=== PATIENT | male | born 1975 | race Caucasian/White ===

== ENCOUNTER 2024-11-25 15:24 | Inpatient (IN) | payer OTHER, SELFPAY ==
[2024-11-25] VITALS (15 sets, daily range): BP systolic 50–172; BP diastolic 66–101
[2024-11-25 11:31] LABS: % Basophils 0.5 % (0-2); % Eosinophils 3.3 % (0-6); % Immature Granulocytes 0.5 % (0-0.5); % Lymphocytes 5.3 % (20.5-51.1); % Monocytes 5.2 % (1.7-9.3); % Neutrophils 85.2 % (42.2-75.2); Absolute Basophils 0.1 10^3/uL (0-0.2); Absolute Eosinophils 0.4 10^3/uL (0-0.7); Absolute Immature Granulocytes 0.1 10^3/uL (0-0.05); Absolute Lymphocytes 0.7 10^3/uL (1.2-3.4); Absolute Monocytes 0.7 10^3/uL (0.1-0.6); Absolute Neutrophils 11.4 10^3/uL (1.4-6.5); Hematocrit 50.7 % (39.0-52.0); Hemoglobin 18.3 g/dL (13.0-18.0); Mean Corp Hgb Conc. 36.1 g/dL (33.0-37.0); Mean Corpuscular Hgb 31.8 pg (27.0-31.0); Nucleated Red Blood Cells % 0 % (-); Platelet Count 230 10^3/uL (130-400); Red Blood Cell Count 5.76 10^6/uL (4.70-6.10); Red Cell Dist. Width 12.6 % (11.5-14.5); White Blood Cell Count 13.3 10^3/uL (4.8-10.8)
[2024-11-25 11:45] LABS: ALT (SGPT) 33 U/L (0-50); AST (SGOT) 31 U/L (17-59); Alkaline Phosphatase 38 U/L (38-126); Blood Urea Nitrogen 47 mg/dl (9-20); Carbon Dioxide 22 mmol/L (22-30); Chloride 97 mmol/L (98-107); Glucose 125 mg/dl (70-99); Lipase 24 U/L (23-300); Potassium 4.4 mmol/L (3.5-5.1); Sodium 134 mmol/L (135-145); Total Bilirubin 1.4 mg/dl (0.2-1.3); Total Protein 6.8 g/dl (6.3-8.2); eGFR > 60.00
--- NOTE | 2024-11-25 12:55 | ED.GENMED ---
History of Present Illness
<Ish Bledsoe MD, Resident - Last Filed: 11/25/24 16:05>
General
Chief Complaint: Abdominal Pain
Source: patient and spouse
Exam Limitations: none
Time Seen by Provider: 11/25/24 12:45
Nursing documentation reviewed up to this point in time: agreed with
History of Present Illness
History of Present Illness:
This is a 49-year-old male with no significant past medical history who presented to the emergency department today with complaints of abdominal pain and nausea that started 2 days ago. Patient reports generalized abdominal pain that does not
radiate, worse with movement, improved with sitting still. He also reports that he has been moving heavy objects in the past 48 hours for work. He also reports watery diarrhea which he attributed to having not eating any thing significant for 2
days. He denies any chest pain, shortness of breath, vomiting, Palpitations, fever, and chills. He also denies any difficulty with urination, previous abdominal surgeries, swellings.
Past History
<Ish Bledsoe MD, Resident - Last Filed: 11/25/24 16:05>
Past History
ED Past Medical History: None
Patient has exhibited threatening behavior?: No
Social History
Tobacco: Smoker
Alcohol: None
Drug: None
Personal:
Living: with family
Employment: Employed
Review of Systems
<Ish Bledsoe MD, Resident - Last Filed: 11/25/24 16:05>
Review of Systems
All Other Systems: ROS reviewed and negative except as documented in HPI and ROS
Phy Exam
<Ish Bledsoe MD, Resident - Last Filed: 11/25/24 16:05>
Physical Exam
Physical Exam:
General Physical Exam
General Presentation: mild distress
General age: appears stated age
General Skin: warm
General Habitus: normal
General Mental: alert
General Hydration: dry mucous membranes
Pulmonary Exam
Pulmonary Exam: generalized wheezing
Genitourinary Exam Male
Exam Male: no discharge, normal external genitalia, normal testicular exam, no evidence of trauma and other (Mild swelling on left groin)
Course
<Ish German Bledsoe MD, Resident - Last Filed: 11/25/24 16:05>
Orders/Labs/Results
Orders:
Orders
11/25/24 Lunch
NPO
Allow oral meds: Yes
Allow clear liquids: No
11/25/24 10:59
Electrocardiogram (*1) Urgent
Reason for Study: Tachycardia
11/25/24 11:00
EKG- Treatment ONCE
11/25/24 11:14
Complete Blood Count/With Diff Urgent
Comprehensive Metabolic Panel Urgent
Lipase Urgent
11/25/24 13:06
CT Abd/pelvis W Iv Cont Urgent
Comment:
Reason For Exam: worsening abd pain, fullness in left groin, N/V
11/25/24 13:07
HYDROmorphone [Dilaudid] 0.5 mg IV NOW STA
11/25/24 13:08
0.9% Sodium Chloride 1000 ml [Nss] 1,000 ml IV BOLUS
11/25/24 13:09
0.9% Sodium Chloride 1000 ml [Nss] 1,000 ml IV BOLUS
HYDROmorphone [Dilaudid] 0.5 mg IV NOW STA
11/25/24 14:40
Cefepime HCl [Maxipime] 1,000 mg IV NOW STA
MetroNIDAZOLE 500 MG/100 ML [Flagyl 500 mg] 100 ml IV NOW
11/25/24 14:42
SURGICAL CONSULT Urgent
Consulting Provider: Jaskaran Dias
Was physician already notified: Yes
11/25/24 14:43
Sterile Water [Sterile Water For Injection] 10 ml .ROUTE .STK-MED ONE
11/25/24 14:48
Lidocaine 2% Mpf [Xylocaine Mpf 2%] 100 mg .ROUTE .STK-MED ONE
Propofol [Diprivan] 20 ml .ROUTE .STK-MED
Rocuronium Morris [Rocuronium] 50 mg .ROUTE .STK-MED ONE
11/25/24 14:50
Fentanyl Citrate/Pf [Sublimaze] 100 mcg .ROUTE .STK-MED ONE
Midazolam HCl [Versed] 2 mg .ROUTE .STK-MED ONE
11/25/24 14:51
Dexamethasone Sod Phosphate [Decadron] 20 mg .ROUTE .STK-MED ONE
Ondansetron Injectable [Zofran] 4 mg .ROUTE .STK-MED ONE
11/25/24 14:54
Bupivacaine 0.25%Pf/Epinephrin [Sensorcaine-Epi 0.25%-0.0005] 30 ml .ROUTE .STK-MED ONE
11/25/24 15:03
Vancomycin [Vancocin] 2,000 mg 0.9% Sodium Chloride 500 ml [Nss] 500 ml IV NOW
11/25/24 15:04
HYDROmorphone [Dilaudid] 0.25 mg IV PACU-Q5MPRN PRN
HYDROmorphone [Dilaudid] 0.5 mg IV PACU-Q5MPRN PRN
Meperidine [Demerol] 12.5 mg IV PACU-Q5MPRN PRN
Ondansetron Injectable [Zofran] 4 mg IV PACU-ONCEPRN PRN
Prochlorperazine [Compazine] 5 mg IV PACU-ONCEPRN PRN
Notify MD As Directed
Notify physician if: for SDS patients with known or suspected sleep obstructive sleep apnea, monitor in the
PACU.
Notify MD for any apneic/desaturation episodes
O2 Therapy [RESP] Urgent
Titrate/Wean O2 to maintain O2 sat greater than (%): 92
Special Instructions: -Provide supplemental oxygen to achieve O2 sat of 92% or greater.
-After 15 min, may wean O2 and discontinue if patient is able to maintain O2 sat of 92%
or greater during recovery period.
If patient is a discharge home, without oxygen therapy, notify anestheiologist if
unable to maintain O2 SAT of 92% or greater on room air for MD clearance.
11/25/24 15:06
Type+Screen Stat
Lactic Acid Stat
Blood Culture Q30M
RIMMA Source: Blood/Venous
Specimen Description:
Blood Culture Q30M
RIMMA Source: Blood/Venous
Specimen Description:
11/25/24 15:15
Normosol (Mult Electrolytes) [Normosol-R/Plasmalyte-A] 1,000 ml IV PER PROTOCOL
11/25/24 15:23
ABO2 Urgent
BBK Wristband Number:
Associate notified that ABO2 has been ordered: [id number]
Date: 11/25/24
Time: 15:20
Occupational Therapist Assistant ID: [id number]
Urinalysis Reflex To Culture Urgent
Date Specimen was Collected: 11/25/24
Time Specimen was Collected: 15:18
Urine Microscopic Reflex Cult Urgent
Urine Culture Urgent
RIMMA Source: U
Specimen Description:
Date Specimen was Collected: 11/25/24
Time Specimen was Collected: 15:18
Abnormal Lab Results
11/25/24 11/25/24
11:14 15:23
WBC 13.3 H 10^3/uL
(4.8-10.8)
Hgb 18.3 H g/dL
(13.0-18.0)
MCH 31.8 H pg
(27.0-31.0)
Abs Immat Gran (auto) 0.1 H 10^3/uL
(0-0.05)
Absolute Neuts (auto) 11.4 H 10^3/uL
(1.4-6.5)
Absolute Lymphs (auto) 0.7 L 10^3/uL
(1.2-3.4)
Absolute Monos (auto) 0.7 H 10^3/uL
(0.1-0.6)
Neutrophils % 85.2 H %
(42.2-75.2)
Lymphocytes % 5.3 L %
(20.5-51.1)
Sodium 134 L mmol/L
(135-145)
Chloride 97 L mmol/L
(98-107)
BUN 47 H mg/dl
(9-20)
Glucose 125 H mg/dl
(70-99)
Total Bilirubin 1.4 H mg/dl
(0.2-1.3)
Urine Ketones Trace A
(Negative)
Ur Occult Blood Reflex 1+ A
(Negative)
Urine RBC 3-6 A /HPF
(0-2)
Urine Bacteria (Reflex) Moderate A
(Negative)
Urine Albumin (Reflex) 1+ A
(Neg - Trace)
11/25/24 11:14
11/25/24 11:14
Vital Signs
Initial and Last Documented VS:
Initial Vital Signs
Temp Pulse Resp BP Pulse Ox
37.0 C 123 16 162/101 94
11/25/24 10:55 11/25/24 10:55 11/25/24 10:55 11/25/24 10:55 11/25/24 10:55
Last Documented Vital Signs
Temp Pulse Resp BP Pulse Ox
98.6 F 117 22 144/79 93
11/25/24 10:55 11/25/24 15:00 11/25/24 15:00 11/25/24 15:00 11/25/24 15:00
<Jose Eduardo Li MD - Last Filed: 11/25/24 16:03>
Orders/Labs/Results
Orders:
Orders
11/25/24 Lunch
NPO
Allow oral meds: Yes
Allow clear liquids: No
11/25/24 10:59
Electrocardiogram (*1) Urgent
Reason for Study: Tachycardia
11/25/24 11:00
EKG- Treatment ONCE
11/25/24 11:14
Complete Blood Count/With Diff Urgent
Comprehensive Metabolic Panel Urgent
Lipase Urgent
11/25/24 13:06
CT Abd/pelvis W Iv Cont Urgent
Comment:
Reason For Exam: worsening abd pain, fullness in left groin, N/V
11/25/24 13:07
HYDROmorphone [Dilaudid] 0.5 mg IV NOW STA
11/25/24 13:08
0.9% Sodium Chloride 1000 ml [Nss] 1,000 ml IV BOLUS
11/25/24 13:09
0.9% Sodium Chloride 1000 ml [Nss] 1,000 ml IV BOLUS
HYDROmorphone [Dilaudid] 0.5 mg IV NOW STA
11/25/24 14:40
Cefepime HCl [Maxipime] 1,000 mg IV NOW STA
MetroNIDAZOLE 500 MG/100 ML [Flagyl 500 mg] 100 ml IV NOW
11/25/24 14:42
SURGICAL CONSULT Urgent
Consulting Provider: Jaskaran Dias
Was physician already notified: Yes
11/25/24 14:43
Sterile Water [Sterile Water For Injection] 10 ml .ROUTE .STK-MED ONE
11/25/24 14:48
Lidocaine 2% Mpf [Xylocaine Mpf 2%] 100 mg .ROUTE .STK-MED ONE
Propofol [Diprivan] 20 ml .ROUTE .STK-MED
Rocuronium Morris [Rocuronium] 50 mg .ROUTE .STK-MED ONE
11/25/24 14:50
Fentanyl Citrate/Pf [Sublimaze] 100 mcg .ROUTE .STK-MED ONE
Midazolam HCl [Versed] 2 mg .ROUTE .STK-MED ONE
11/25/24 14:51
Dexamethasone Sod Phosphate [Decadron] 20 mg .ROUTE .STK-MED ONE
Ondansetron Injectable [Zofran] 4 mg .ROUTE .STK-MED ONE
11/25/24 14:54
Bupivacaine 0.25%Pf/Epinephrin [Sensorcaine-Epi 0.25%-0.0005] 30 ml .ROUTE .STK-MED ONE
11/25/24 15:03
Vancomycin [Vancocin] 2,000 mg 0.9% Sodium Chloride 500 ml [Nss] 500 ml IV NOW
11/25/24 15:04
HYDROmorphone [Dilaudid] 0.25 mg IV PACU-Q5MPRN PRN
HYDROmorphone [Dilaudid] 0.5 mg IV PACU-Q5MPRN PRN
Meperidine [Demerol] 12.5 mg IV PACU-Q5MPRN PRN
Ondansetron Injectable [Zofran] 4 mg IV PACU-ONCEPRN PRN
Prochlorperazine [Compazine] 5 mg IV PACU-ONCEPRN PRN
Notify MD As Directed
Notify physician if: for SDS patients with known or suspected sleep obstructive sleep apnea, monitor in the
PACU.
Notify MD for any apneic/desaturation episodes
O2 Therapy [RESP] Urgent
Titrate/Wean O2 to maintain O2 sat greater than (%): 92
Special Instructions: -Provide supplemental oxygen to achieve O2 sat of 92% or greater.
-After 15 min, may wean O2 and discontinue if patient is able to maintain O2 sat of 92%
or greater during recovery period.
If patient is a discharge home, without oxygen therapy, notify anestheiologist if
unable to maintain O2 SAT of 92% or greater on room air for MD clearance.
11/25/24 15:06
Type+Screen Stat
Lactic Acid Stat
Blood Culture Q30M
RIMMA Source: Blood/Venous
Specimen Description:
Blood Culture Q30M
RIMMA Source: Blood/Venous
Specimen Description:
11/25/24 15:15
Normosol (Mult Electrolytes) [Normosol-R/Plasmalyte-A] 1,000 ml IV PER PROTOCOL
11/25/24 15:23
ABO2 Urgent
EntitleK Wristband Number:
Associate notified that ABO2 has been ordered: [id number]
Date: 11/25/24
Time: 15:20
Occupational Therapist Assistant ID: [id number]
Urinalysis Reflex To Culture Urgent
Date Specimen was Collected: 11/25/24
Time Specimen was Collected: 15:18
Urine Microscopic Reflex Cult Urgent
Urine Culture Urgent
RIMMA Source: U
Specimen Description:
Date Specimen was Collected: 11/25/24
Time Specimen was Collected: 15:18
Abnormal Lab Results
11/25/24 11/25/24
11:14 15:23
WBC 13.3 H 10^3/uL
(4.8-10.8)
Hgb 18.3 H g/dL
(13.0-18.0)
MCH 31.8 H pg
(27.0-31.0)
Abs Immat Gran (auto) 0.1 H 10^3/uL
(0-0.05)
Absolute Neuts (auto) 11.4 H 10^3/uL
(1.4-6.5)
Absolute Lymphs (auto) 0.7 L 10^3/uL
(1.2-3.4)
Absolute Monos (auto) 0.7 H 10^3/uL
(0.1-0.6)
Neutrophils % 85.2 H %
(42.2-75.2)
Lymphocytes % 5.3 L %
(20.5-51.1)
Sodium 134 L mmol/L
(135-145)
Chloride 97 L mmol/L
(98-107)
BUN 47 H mg/dl
(9-20)
Glucose 125 H mg/dl
(70-99)
Total Bilirubin 1.4 H mg/dl
(0.2-1.3)
Urine Ketones Trace A
(Negative)
Ur Occult Blood Reflex 1+ A
(Negative)
Urine RBC 3-6 A /HPF
(0-2)
Urine Bacteria (Reflex) Moderate A
(Negative)
Urine Albumin (Reflex) 1+ A
(Neg - Trace)
11/25/24 11:14
11/25/24 11:14
Vital Signs
Initial and Last Documented VS:
Initial Vital Signs
Temp Pulse Resp BP Pulse Ox
37.0 C 123 16 162/101 94
11/25/24 10:55 11/25/24 10:55 11/25/24 10:55 11/25/24 10:55 11/25/24 10:55
Last Documented Vital Signs
Temp Pulse Resp BP Pulse Ox
98.6 F 117 22 144/79 93
11/25/24 10:55 11/25/24 15:00 11/25/24 15:00 11/25/24 15:00 11/25/24 15:00
<Ish Bledsoe MD, Resident - Last Filed: 11/25/24 16:05>
MDM/Problems Addressed
MDM/Problems Addressed:
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 Also reports acute watery diarrhea that started about 24 hours ago.
Patient reports pain has been worsening, currently rated 10/10 with movements.
Differential diagnosis include acute small bowel obstruction, acute viral gastroenteritis. Other likely etiology including acute inguinal hernia less likely given his physical exam.
Will get a noncontrast CT of abdominal/pelvis. Will also give 0.5 mg Dilaudid for pain and continue to reassess patient.
<Ish Bledsoe MD, Resident - Last Filed: 11/25/24 16:05>
*Critical Care Note
Total Time (30-74mins, 75-104mins- exclusive of procedures): Not Applicable
<Ish Bledsoe MD, Resident - Last Filed: 11/25/24 16:05>
Update Note
Update Note:
Patient CT scan of abdomen and pelvis with IV contrast reports 5 x 7.5 x 7.5 abnormal fluid collection in the RLQ of abdomen with accompanying free air most likely due to perforated abscess. General surgery consulted, patient will be admitted for
further evaluation and management.
ED Attending Note
<Ish Bledsoe MD, Resident - Last Filed: 11/25/24 16:05>
-
Portions of this chart may have been created with voice recognition software.� Occasional wrong word or��sound alike� substitutions may have occurred due to the inherent limitations of voice recognition software.
<Jose Eduardo Li MD - Last Filed: 11/25/24 16:03>
ED Attending Note
Patient seen and examined by attending physician: Yes
I performed a history and physical exam of patient and discussed management with resident, I reviewed resident's note and agree with documented findings and plan of care.: Yes
ED Attending Note:
I have seen and evaluated the patient with a [id number] encounter. I have spoken to the resident and involved in the medical history, the physical exam, medical decision making.
Evaluation and management service: agree unless noted differently below.
Results interpretation: agree unless noted differently below.
Focused HPI: 49-year-old male with no reported chronic medical issues presents to the emergency room with his for evaluation of abdominal pain. Patient reports symptoms started 2 days ago and they have been constant and worsening since that
time. He reports pain is diffuse nonfocal. Worse with any movement or palpation. No relieving factors noted. Mild nausea no vomiting. He denies any other complaints. He thinks he could have strained a muscle at work as he says he moves very
heavy objects and does not use good form/brace his core well. Denies surgical history.
Physical exam: Awake alert appears uncomfortable. Tachycardic, hypertensive but afebrile. His abdomen is firm severe diffuse tenderness with guarding and rebound tenderness. No palpable hernia.
Medical Decision Makin-year-old male presents with abdominal pain x 2 days. He has a surgical abdomen. His labs showed a leukocytosis, CMP no clinically significant abnormalities. He was sent for a CT which showed free air, likely perforated
small bowel with adjacent abscess. Allergic to penicillins associated with vancomycin, cefepime, Flagyl. Case was discussed with general surgery who will take to OR.
Discharge Plan
Departure
Patient Disposition: Admit
Date of Disposition: 11/25/24
Time of Disposition: 15:50
Admit to doctor: Arun
Presentation/result/management discussed w/ accepting MD/DO: Surgery
Discharge Problem:
Perforated bowel, Intra-abdominal abscess
Interventions
Interventions:
*Risk Screen - Suicide Last Done: 11/25/24 11:00
*General Assessment Last Done: 11/25/24 15:00
*Neglect/Abuse Screening Last Done: 11/25/24 11:00
*ED COVID-19 Vaccine History Last Done: 11/25/24 15:00
*Nursing Disposition Last Done: 11/25/24 15:35
AL-Ufxojs-Sgewfyunos Assessment Last Done: 11/25/24 15:00
Discharge Date and Time
Discharge Date/Time: 11/25/24 15:36
[2024-11-25] MEDS: DILAUDID 0.5 MG IV ×2 (13:25→14:39)
[2024-11-25] MEDS: NSS 1000 IV ×2 (13:25→19:38)
--- NOTE | 2024-11-25 15:00 | HPS.HSE ---
Addendum entered and electronically signed by Jaskaran Dias MD 11/25/24 15:43:
I saw and examined the patient independently.
The Scalp Treatment Operator's note was reviewed and I agree with the note, assessment and plan except where noted below.
Comment: This is a 49-year-old male with no significant past medical history other than active smoker who presents with perforated viscus likely small bowel.
Will plan for open exploratory laparotomy, drainage of intra-abdominal abscess and possible bowel resection.
Risks/Benefits/Alternatives, expected postoperative course and possible complications (bleeding, infection, injury to surrounding structures, acute/chronic pain) discussed at length. Patient wishes to proceed with surgery. All questions answered.
Consent obtained.
I spent 60 minutes in total for the care of this patient today including direct patient care and counseling, reviewing labs, imaging, coordination of care, as well as documentation.
Original Note:
Family Physician
-
Family Physician: NOT KNOW UNKNOWN - PT DOES
Chief Complaint
-
abdominal pain
History of Present Illness
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 He notes occasional nausea at first which
has progressively worsened with increasing frequency of vomiting. He notes that today his pain increased and he presented through the ED for evaluation. He has been passing watery diarrhea as well since Monday. He denies fevers or chills. He
denies hematemesis or hematochezia. He denies fevers or chills.
Medical History
Past Medical History
Past Medical History: Reports None
Past Surgical History: Reports None
Social History
Tobacco: Smoker (1 ppd, stopped 11/23/24)
Alcohol: Other (rare )
Drug: Marijuana
Personal:
Living: With Family
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
Family History
Family History: Not pertinent
Allergies / Home Medications
Allergies reflects when Allergies were last updated in [employer].
Home Medications with original date entered in [employer]
Allergy/Medication List:
Patient Allergies
Allergy/AdvReac Type Severity Reaction Status Date / Time
Penicillins Allergy Unknown Verified 11/25/24 10:58
�Medication �Instructions �Recorded �Confirmed �Type
acetaminophen 650 mg 1,300 mg PO [id number] PRN MILD PAIN 11/25/24 11/25/24 History
tablet,extended release
Review of Systems
-
History Source: Patient and Family
A 12 point ROS was completed and negative except as noted: Yes
Physical Exam
Vital Signs
Vital Signs
Temp Pulse Resp BP Pulse Ox
98.6 F 123 16 162/101 94
11/25/24 10:55 11/25/24 10:55 11/25/24 10:55 11/25/24 10:55 11/25/24 10:55
Physical Exam
General: Well Developed and Well Nourished
HEENT: NormoCephalic and Moist mucous membranes
Respiratory: Non Labored Respirations
Cardiac: Regular Rhythm and Tachycardia
GI: Soft, Tender (mid to lower abdomen) and Distended
Skin: Warm and Dry
Neuro: Awake, Alert and AO x 3
Psych: Calm
Laboratory Results
-
11/25/24 11:14
11/25/24 11:14
Laboratory Results
Total Bilirubin 1.4 mg/dl (0.2-1.3) H 11/25/24 11:14
AST 31 U/L (17-59) 11/25/24 11:14
ALT 33 U/L (0-50) 11/25/24 11:14
Alkaline Phosphatase 38 U/L (38-126) 11/25/24 11:14
Lipase 24 U/L (23-300) 11/25/24 11:14
Data Reviewed
-
CT Scan: Image Personally Visualized and interpreted, Report Reviewed by me, Discussed with Physician, Discussed with Patient and Discussed with Family
Lab Data: Labs Reviewed by me, Discussed with Physician, Discussed with Patient and Discussed with Family
Impression/Plan
-
IMPRESSION: 49 yo male with a h/o OA (takes Tylenol), 1 ppd smoking (quit 11/23/2024) who presents with 2 days of abdominal pain with n/v and watery nonbloody diarrhea. On exam, the abdomen is tender to the mid to lower abdomen most severe to the
pelvic area. He is mildly tachycardic but afebrile with stable BP. Mild leukocytosis present, elevated h/h suspect secondary to hemoconcentration. CT imaging reviewed with free air noted indicating a perforated viscous. Suspect secondary to
perforated small bowel diverticula but sigmoid diverticulitis or duodenal ulcer remain in differential. He has received cefepime and vancomycin in the ED.
PLAN:
NPO
Continue abx, will switch to IV zosyn post operatively
Currently declining nicotine patch
Start IVF
Analgesics/antiemetics
Blood cx drawn in ED. Added lactic level and type and screen to labs
Will plan emergent exploratory laparotomy
[2024-11-25] MEDS: FLAGYL 500 MG 100 IV (15:09)
[2024-11-25] MEDS: MAXIPIME 1000 MG IV (15:09)
[2024-11-25 15:33] LABS: Urine Albumin 1+ (Neg - Trace); Urine Bilirubin Negative (Negative); Urine Character Clear (Clear); Urine Color Yellow; Urine Glucose Negative (Negative); Urine Ketone Trace (Negative); Urine Leukocyte Negative (Negative); Urine Nitrite Negative (Negative); Urine Occult Blood 1+ (Negative); Urine Urobilinogen Negative (Neg - 1+)
--- NOTE | 2024-11-25 15:42 | W.SUR.PREOP ---
Pre-Operative Surgical Note
-
I have examined this patient prior to the performance of the scheduled procedure.
The patient's condition is unchanged from the time of the current History and
Physical and the patient is able to undergo the scheduled procedure.
[2024-11-25 15:48] LABS: Urine Squamous Cell 0-2 /LPF (Few)
[2024-11-25 15:49] LABS: Urine Bacteria Moderate (Negative)
--- NOTE | 2024-11-25 18:08 | W.IMMPOSTOP ---
Surgical Immed Post Op Note
-
Primary Surgeon: Jaskaran Dias MD
Assisting Surgeon: Alphonse Julian MD
Train Electronic Technician: LAURA Ellis
Pre-op Diagnosis: Perforated viscus, intra-abdominal abscess
Post-op Diagnosis: Same
Procedure Performed:
1. Exploratory laparotomy
2. Drainage of intra-abdominal abscess
3. Appendectomy
4. Rigid proctoscopy
Anesthesia Type: General
Specimen / Cultures:
1. Abdominal fluid for Gram stain and culture
2. Appendix
Estimated Blood Loss: 17 cc
Complications: None
Operative Findings: Vertical midline incision. Abdomen entered safely, after peeling back the omentum a fairly liquid abscess cavity was identified with a thin brown-white tinge. There was a nest of small bowel that appeared to form the wall of
this cavity which was all freed up. A large Jack wound retractor was placed and the bowel was run from the ligament of Treitz to the ligament of Treves. Though there was many indurated areas of small bowel with fibrinous exudate plastered over
it no enterotomy was readily identified. There was a small serosal tear near the ligament of Treves which was repaired with 3-0 Vicryl pops in a Lembert fashion. The appendix was identified and though not inflamed or the source of perforation did
appear somewhat hyperemic and we elected to do a prophylactic appendectomy with suture ligation of the base with 2-0 silk ties followed by a 3-0 Vicryl pursestring suture to imbricate the stump. As no clear source was identified I called my partner
Dr. Julian in to assist. Our incision was extended cephalad. The gallbladder was identified and normal as was the stomach and duodenum. We did have anesthesia place an NG tube and insufflate the stomach and a leak test was performed with with no
evidence of air bubbles. There was purulent fluid in the right and left upper quadrants which were washed out. We then turned our attention to the:. The right colon transverse colon and descending colon all appeared normal. The sigmoid colon had
some fibrinous exudate extending down into the pelvis but this was felt to be secondary to the abscess cavity and reactive. A rigid proctosigmoidoscopy was performed on table and a leak test was performed and again no air bubbles were noted. The
pelvis and lower quadrants were irrigated until clear with warm saline. After running the small bowel 1 last time to ensure no perforation or serosal tear was missed a 19 [place] round Luis drain was introduced through a stab incision in the left
lower quadrant and passed down into the pelvis and up the right colic gutter and secured to the skin with a 2-0 nylon suture. The abdomen was then closed with 2 0 PDS sutures anchored at each apex and run towards the middle and tied together using
0.5 cm bites with 0.5 cm advancement. Care was taken where the rectus muscle was exposed to take bites of both the anterior and posterior rectus sheaths. The subcutaneous tissue was irrigated with saline and then loosely stapled together with
intermittent Betadine soaked gold. The incision was then covered with an Aquacel dressing.
POST OP PLAN:
Imaging: None
Labs: Routine AM
Diet: N.p.o. Expected ileus. NG tube to low intermittent wall suction.
Analgesia: Tylenol 650mg q6 Donny, Toradol 10 mg as needed, Dilaudid 0.5mg q2h PRN
Neuro/vascular checks: q4h
AC/AP: Hold Therapeutic AC, Ok for DVT PPx
Activity: Ad Amelia
Wound/Incisions/Drains: Routine, SHENG to bulb suction
Abx: Transition to Zosyn, follow-up cultures. Will plan for a 10-day course.
Dispo: RNF
[2024-11-25] MEDS: TORADOL 10 MG IV (18:56)
--- NOTE | 2024-11-25 19:45 | PTCARENOTE ---
Pt a 49 y/o M Diagnosis: Perforated viscus, intra-abdominal abscess arrived from PACU at 19:45, post Exp Lap, Rigid Proctosigmoidoscopy, Intra Abdominal Abscess Drainage & Appendectomy. Pt has a Midline incision with a surgical antibacterial
dressing with medium amount of drainage, LLQ SHENG drain, abdomen is covered with an abdominal binder. PT has a Soliman Cath to be removed on POD#2 putting out yellow urine, Pt has an NG tube in his R Mariano, on low intermittent suction. PT AOx3, but
drowsy, bed in a low position, at his side, call light in reach, care ongoing.
Post-op Diagnosis: Same
Procedure Performed:
1. Exploratory laparotomy
2. Drainage of intra-abdominal abscess
3. Appendectomy
4. Rigid proctoscopy
[2024-11-25] MEDS: ZOSYN 50 IV (20:35)
[2024-11-25] MEDS: OFIRMEV 100 IV (21:15)
[2024-11-26] MEDS: NSS 1000 IV ×3 (00:42→22:24)
[2024-11-26] MEDS: ZOSYN 50 IV ×4 (01:02→20:00)
[2024-11-26 03:05] VITALS: BP 122/84
[2024-11-26] MEDS: OFIRMEV 100 IV ×3 (03:21→16:22)
[2024-11-26 07:39] VITALS: BP 156/102
[2024-11-26] MEDS: PROTONIX IV 40 MG IV (07:55)
[2024-11-26] MEDS: NSS (PRESERVATIVE FREE) 10 ML IV (07:55)
--- NOTE | 2024-11-26 09:19 | W.PN.GS2 ---
Today's Communication / Plan
-
Labs ordered
Continue antibiotics D1/10
Continue pain control regimen
Continue NG tube to low intermittent wall suction. Protonix added.
N.p.o., IV fluids
incentive spirometry.
SCDs, out of bed and ambulate today.
Will DC Azul tonight at midnight.
Will likely plan for upper GI, small bowel follow-through with Omnipaque prior to removing the NG tube to ensure no residual perforation
Nicotine patch
Assessment / Plan
-
This is a 49-year-old male with no significant past medical or surgical history who presented to our hospital on 11/25/2024 with a 2-day history of acute onset abdominal pain found to have intra-abdominal free fluid and free air. Postoperative day 1
exploratory laparotomy, drainage of intra-abdominal abscess, and appendectomy without clear identification of the underlying source. No stomach or duodenal pathology. Small bowel without diverticula or enterotomy. Presumably this is a sigmoid
diverticula that perfect and potentially sealed off on its own. Doing well, expected postoperative course.
Labs ordered
Continue antibiotics D1/10
Continue pain control regimen
Continue NG tube to low intermittent wall suction. Protonix added.
N.p.o., IV fluids
incentive spirometry.
SCDs, out of bed and ambulate today.
Will DC Azul tonight at midnight.
Will likely plan for upper GI, small bowel follow-through with Omnipaque prior to removing the NG tube to ensure no residual perforation
Nicotine patch
Time Spent
Total Time Spent with Patient (in minutes): 20
Subjective Data
-
Date of Service: November 26, 2024
Interval Events:
No acute events overnight. Slept well. Pain Controlled. Denies Nausea/Vomiting, -bowel function.
Objective Data
-
Intake and Output
11/25/24 11/26/24 11/27/24
06:59 06:59 06:59
Intake Total 1999
Output Total 2244 / 224
Balance -245 / -245
Intake:
IV fluids (Total) 1700 / 1700
NOrmosol 200 / 200
IV piggybacks 300 / 300
Amount instilled into GI Tube ( 0 / 0
Total)
[place] Sump 0 / 0
Output:
Drain Output (Total) 170 / 170
Left Abdomen Tereso-Crespo A 170 / 170
Gastrointestinal tube output ( 750 / 750
Total)
[place] Sump 750 / 750
Urine, Azul 1325 / 1325
Vital Signs
Temp Pulse Resp BP Pulse Ox
97.5 F 103 16 156/102 96
11/26/24 07:39 11/26/24 07:39 11/26/24 07:39 11/26/24 07:39 11/26/24 07:39
Lab Results
11/25/24 11:14
11/25/24 11:14
Calcium 9.0 mg/dl (8.4-10.2) 11/25/24 11:14
Total Bilirubin 1.4 mg/dl (0.2-1.3) H 11/25/24 11:14
AST 31 U/L (17-59) 11/25/24 11:14
ALT 33 U/L (0-50) 11/25/24 11:14
Alkaline Phosphatase 38 U/L (38-126) 11/25/24 11:14
Total Protein 6.8 g/dl (6.3-8.2) 11/25/24 11:14
Albumin 4.0 g/dl (3.5-5.0) 11/25/24 11:14
Physical Exam
-
GENERAL/NEURO: Awake, Alert, no distress. NG tube with dark red output.
CHEST: Unlabored breathing on nasal cannula.
ABDOMEN: Soft, Non-Tender, Non-Distended, incision covered with dressing with stable strikethrough. SHENG with serosanguineous output.
Patient has a azul catheter: Yes
Patient has a central line: No
[2024-11-26 09:47] LABS: % Basophils 0.6 % (0-2); % Eosinophils 1.7 % (0-6); % Immature Granulocytes 0.3 % (0-0.5); % Lymphocytes 5.8 % (20.5-51.1); % Monocytes 6.6 % (1.7-9.3); Absolute Eosinophils 0.1 10^3/uL (0-0.7); Absolute Lymphocytes 0.4 10^3/uL (1.2-3.4); Absolute Monocytes 0.5 10^3/uL (0.1-0.6); Hemoglobin 15.1 g/dL (13.0-18.0); Mean Corpuscular Hgb 31.9 pg (27.0-31.0); Mean Corpuscular Volume 88.6 fL (80.0-94.0); Mean Platelet Volume 9.3 fL (7.4-10.4); Nucleated Red Blood Cells % 0 % (-); Platelet Count 211 10^3/uL (130-400); Red Blood Cell Count 4.74 10^6/uL (4.70-6.10); Red Cell Dist. Width 12.8 % (11.5-14.5); White Blood Cell Count 7.1 10^3/uL (4.8-10.8)
[2024-11-26 10:25] LABS: Blood Urea Nitrogen 35 mg/dl (9-20); Carbon Dioxide 26 mmol/L (22-30); Chloride 105 mmol/L (98-107); Estimated Creatinine Clearance 122 ml/min; Glucose 132 mg/dl (70-99); Sodium 139 mmol/L (135-145); eGFR > 60.00
[2024-11-26 11:16] VITALS: BP 157/97
--- NOTE | 2024-11-26 11:53 | CM ---
Met with pt at bedside
Pt reports he lives with his and son in a 2 story home; no steps to enter, 1 step to 2nd fl
Independent, employed FT, drives
DME - none
SNF/HH - no past hx
Has ride at discharge
PCP - currently does not have PCP
Pharm - [facility] in [place]
Plan - TBD based on pts needs; CM will follow
[2024-11-26 15:15] VITALS: BP 153/93
[2024-11-26 19:41] VITALS: BP 129/86
[2024-11-26] MEDS: DILAUDID 0.5 MG IV (22:24)
[2024-11-26 22:34] VITALS: BP 164/86
[2024-11-27] MEDS: ZOSYN 50 IV ×4 (00:52→20:02)
--- NOTE | 2024-11-27 02:17 | DOWNTIME ---
There was a [employer]otyping Engineer Downtime on 11/27/2024 from 0100 to 11/27/2023 at 0205 . Downtime documentation of patient's care, including medication administrations, has been reconciled in the electronic record per guidelines. Refer to the
patient's paper chart under the miscellaneous tab to see printed paper medication records and downtime forms.
[2024-11-27 03:26] VITALS: BP 142/85
[2024-11-27 07:04] VITALS: BP 151/85
[2024-11-27] MEDS: PROTONIX IV 40 MG IV (07:54)
[2024-11-27] MEDS: NSS (PRESERVATIVE FREE) 10 ML IV (07:54)
[2024-11-27] MEDS: TORADOL 10 MG IV ×2 (07:59→23:58)
[2024-11-27 08:14] LABS: % Basophils 0.2 % (0-2); % Immature Granulocytes 0.4 % (0-0.5); % Lymphocytes 11.4 % (20.5-51.1); % Monocytes 8.6 % (1.7-9.3); % Neutrophils 79.4 % (42.2-75.2); Absolute Monocytes 0.7 10^3/uL (0.1-0.6); Absolute Neutrophils 6.7 10^3/uL (1.4-6.5); Hematocrit 39.7 % (39.0-52.0); Hemoglobin 13.9 g/dL (13.0-18.0); Mean Corpuscular Hgb 32.1 pg (27.0-31.0); Mean Corpuscular Volume 91.7 fL (80.0-94.0); Mean Platelet Volume 9.9 fL (7.4-10.4); Nucleated Red Blood Cells % 0 % (-); Platelet Count 224 10^3/uL (130-400); Red Blood Cell Count 4.33 10^6/uL (4.70-6.10); White Blood Cell Count 8.4 10^3/uL (4.8-10.8)
[2024-11-27 08:32] LABS: Blood Urea Nitrogen 30 mg/dl (9-20); Calcium 7.4 mg/dl (8.4-10.2); Carbon Dioxide 28 mmol/L (22-30); Chloride 107 mmol/L (98-107); Estimated Creatinine Clearance > 125 ml/min; Glucose 105 mg/dl (70-99); Potassium 3.9 mmol/L (3.5-5.1); Sodium 143 mmol/L (135-145); eGFR > 60.00
[2024-11-27 11:05] VITALS: BP 150/86
[2024-11-27] MEDS: DILAUDID 0.5 MG IV ×2 (13:25→20:25)
[2024-11-27 15:00] VITALS: BP 132/73
--- NOTE | 2024-11-27 15:04 | PN.CDI ---
CDI
- -
CDI:
Physician Documentation Request
Admit Date: 11/25/24 15:24
Dear Doctor / CLIENT SERVICES ASSOCIATE,
Please review the following and provide your response in the progress notes.
Clinical Indicators:
Pt admitted with Perforated viscus/Intra-abdominal abscess
Documented per ED, 'He also reports watery diarrhea which he attributed to having not eating any thing significant for 2 days....Tachycardic....His labs showed a leukocytosis...'
On admission WBC 13.3,HR 123, respirations 28
Pt teated with surgery/ IV Flagyl/Cefepime now on Zosyn
Please clarify which of the following most accurately describes the status of the patient's infection:
Sepsis-POA
- Systemic manifestations of infection, with 2 or more SIRS criteria which include:
- Fever >100.4 degrees F or hypothermia < 96.8 degrees F
- Leukocytosis - WBC > 12,000 or leukopenia - WBC < 4,000 or > 10% bands
- Tachycardia > 90 beats per minute
- Tachypnea - RR > 20 breaths per minute or PaCO2 , 32mmHg
Source: Merck Manual 2013
Intraabdominal abscess/perforated viscus only , Without Systemic Illness
Other ( please specify)
Use of terms such as suspected, likely, concern for, or probable (associated with a specific diagnosis that is being evaluated, monitored, or treated as if it exists) are acceptable and can be coded in the inpatient setting, when documented at the
time of discharge.
Thank you,
Sofy Keenan RN
CDI Specialist
[place] [facility]
Please use your independent medical judgment in providing your response.
--- NOTE | 2024-11-27 15:12 | PN.CDI ---
CDI
- -
CDI:
Physician Documentation Request
Admit Date: 11/25/24 15:24
Dear Doctor/ C PROGRAMMER,
Please review the following and provide your response in the progress notes.
Clinical Indicators:
Pt admitted with Perforated viscus/Intra-abdominal abscess
Documented per ED, 'He also reports watery diarrhea which he attributed to having not eating any thing significant for 2 day..'
Renal functions are as below/Pt did get IVFs
11/25/24 11/26/24 11/27/24
11:14 09:27 06:22
Creatinine 1.1 0.7 0.6 L
Clarify which of the following accurately represents the patient's renal status:
PATTI
Abnormal lab value only
Other ( please specify)
Criteria for PATTI*
1 Increase in serum creatinine by > or = to 0.3 mg/dL (> or = to 26.5 micromol/L) within 48 hours, OR
2 Increase in serum creatinine to > or = to 1.5 times baseline, which is known or presumed to have occurred within 7 days, OR
3 Urine volume < 0.5 nL/kg/hour for six hours
Use of terms such as suspected, likely, concern for, or probable (associated with a specific diagnosis that is being evaluated, monitored, or treated as if it exists) are acceptable and can be coded in the inpatient setting, when documented at the
time of discharge.
Thank you,
Sofy Keenan RN
CDI Specialist
[place] [facility]
Please use your independent medical judgment in providing your response.
*Source: Kidney Disease: Improving Global Outcomes (KDIGO) 2012
--- NOTE | 2024-11-27 16:11 | CM ---
Chart reviewed
POD #2 s/p exp lap
Abd X-ray today
CM will cont to follow for d/c needs
Plan - anticipate home no needs
[2024-11-27 19:00] VITALS: BP 150/86
[2024-11-27 23:00] VITALS: BP 152/86
[2024-11-28] VITALS (13 sets, daily range): BP systolic 123–159; BP diastolic 72–95
[2024-11-28] MEDS: DILAUDID 0.5 MG IV ×2 (00:58→22:00)
[2024-11-28] MEDS: ZOSYN 50 IV ×3 (01:00→19:43)
[2024-11-28 06:11] LABS: % Basophils 0.1 % (0-2); % Eosinophils 0.3 % (0-6); % Immature Granulocytes 0.7 % (0-0.5); % Lymphocytes 12.6 % (20.5-51.1); % Monocytes 8.8 % (1.7-9.3); % Neutrophils 77.5 % (42.2-75.2); Absolute Immature Granulocytes 0.1 10^3/uL (0-0.05); Absolute Lymphocytes 1.2 10^3/uL (1.2-3.4); Absolute Monocytes 0.8 10^3/uL (0.1-0.6); Absolute Neutrophils 7.1 10^3/uL (1.4-6.5); Hematocrit 39.6 % (39.0-52.0); Hemoglobin 13.5 g/dL (13.0-18.0); Mean Corp Hgb Conc. 34.1 g/dL (33.0-37.0); Mean Corpuscular Hgb 31.9 pg (27.0-31.0); Mean Corpuscular Volume 93.6 fL (80.0-94.0); Mean Platelet Volume 9.9 fL (7.4-10.4); Nucleated Red Blood Cells % 0 % (-); Platelet Count 215 10^3/uL (130-400); Red Blood Cell Count 4.23 10^6/uL (4.70-6.10); Red Cell Dist. Width 13.1 % (11.5-14.5); White Blood Cell Count 9.2 10^3/uL (4.8-10.8)
[2024-11-28 06:41] LABS: Blood Urea Nitrogen 32 mg/dl (9-20); Calcium 7.5 mg/dl (8.4-10.2); Carbon Dioxide 27 mmol/L (22-30); Chloride 106 mmol/L (98-107); Estimated Creatinine Clearance > 125 ml/min; Glucose 101 mg/dl (70-99); Potassium 3.8 mmol/L (3.5-5.1); Sodium 140 mmol/L (135-145); eGFR > 60.00
[2024-11-28] MEDS: FLUSH (NSS) 1 FLUSH IV ×2 (07:43→18:17)
[2024-11-28] MEDS: NSS (PRESERVATIVE FREE) 10 ML IV (07:43)
[2024-11-28] MEDS: PROTONIX IV 40 MG IV (07:43)
--- NOTE | 2024-11-28 09:33 | W.PN.GS2 ---
Today's Communication / Plan
-
`
Assessment / Plan
-
Assessment: 49-year-old male with no significant past medical or surgical history who presented to our hospital on 11/25/2024 with a 2-day history of acute onset abdominal pain found to have intra-abdominal free fluid and free air.
POD #2 status post exploratory laparotomy, drainage of intra-abdominal abscess, and appendectomy without clear identification of the underlying source. No stomach or duodenal pathology. Small bowel without diverticula or enterotomy. Presumably
this is a sigmoid diverticula that perfect and potentially sealed off on its own.
AFVSS
SHENG purulent
Abdominal x-ray with significant gaseous distention throughout small bowel and stomach and oral contrast scattered and colon
Assessment/plan: Hold on clear liquids only for comfort
Resume IV fluids for hydration -LR at 100 mL/hour
Continue Zosyn #2/
incentive spirometry.
SCDs, out of bed and ambulate today.
Monitor quantity and character of SHENG outputs
Lovenox for VTE prophylaxis
Subjective Data
-
Date of Service: November 28, 2024
Patient seen and examined.
Postoperative incisional pain controlled.
No nausea but not much appetite
Passing flatus on occasion, loose/semiformed stools
Objective Data
-
Intake and Output
11/27/24 11/28/24 11/29/24
06:59 06:59 06:59
Intake Total 1300 / 1300 2260 / 2260
Output Total 1720 / 1720 525 / 525
Balance -420 / -420 1735 / 1735
Intake:
Oral fluids 2160 / 2160
IV fluids (Total) 900 / 900
IV piggybacks 400 / 400 100 / 100
Output:
Drain Output (Total) 170 / 170 175 / 175
Left Abdomen Tereso-Crespo A 170 / 170 80 / 80
Right 95 / 95
Gastrointestinal tube output ( 50 / 50
Total)
[place] Sump 50 / 50
Urine, Soliman 1550 / 1550
Urine, Voided 300 / 300
Other:
Number of approximated MODERATE 3
amounts of urine
Vital Signs
Temp Pulse Resp BP Pulse Ox
98.5 F 90 16 155/82 95
11/28/24 06:53 11/28/24 06:53 11/28/24 06:53 11/28/24 06:53 11/28/24 07:45
Lab Results
11/28/24 04:46
11/28/24 04:46
Calcium 7.5 mg/dl (8.4-10.2) L 11/28/24 04:46
Total Bilirubin 1.4 mg/dl (0.2-1.3) H 11/25/24 11:14
AST 31 U/L (17-59) 11/25/24 11:14
ALT 33 U/L (0-50) 11/25/24 11:14
Alkaline Phosphatase 38 U/L (38-126) 11/25/24 11:14
Total Protein 6.8 g/dl (6.3-8.2) 11/25/24 11:14
Albumin 4.0 g/dl (3.5-5.0) 11/25/24 11:14
Physical Exam
-
NAD, AAOx3
ABD: Softly distended, mild tenderness to palpation
Midline incision with Aquacel dressing
SHENG with purulent fluid
[2024-11-28] MEDS: LR 1000 IV ×2 (10:11→20:24)
--- NOTE | 2024-11-28 12:20 | W.PN.UPDATE ---
Update Note
Progress Note Update
Patient seen and examined. Bile noted in the SHENG bulb.
Will plan for urgent return to the OR for exploration today.
Risks/Benefits/Alternatives, expected postoperative course and possible complications (bleeding, infection, injury to surrounding structures, acute/chronic pain) discussed at length. Patient wishes to proceed with surgery. All questions answered.
Consent obtained, and updated by phone
--- NOTE | 2024-11-28 12:40 | OR.RPT ---
Operative Report
Operative Report
Patient Name: Juan Vicente
: 1975
Date of Operation: 11/25/2024
Preoperative Diagnosis: Perforated viscus, intra-abdominal abscess
Postoperative Diagnosis: Same
Procedure(s):
1. Exploratory laparotomy
2. Drainage of intra-abdominal abscess
3. Appendectomy
4. Rigid proctoscopy
Surgeon(s):
Dr. Jaskaran Dias
Distance Learning Coordinator(s):
Dr. Alphonse Julian
LAURA Ellis
Anesthesia: General
Estimated Blood Loss: 17 cc
Urine Output: See anesthesia record
Drains/Lines/Implants: 19 Syrian round Luis drain placed in the left lower quadrant across the pelvis and up the right colic gutter.
Specimens: Abscess fluid culture
Indication for surgery:
This is a 49-year-old male with no significant past medical history who presented to our hospital with abdominal pain found to have perforated viscus on CT imaging. On exam he was rigid but otherwise clinically stable. Risk benefits and
alternatives were reviewed with the patient, he consented for surgical exploration.
Operative Findings: Vertical midline incision. Abdomen entered safely, after peeling back the omentum a fairly liquid abscess cavity was identified with a thin brown-white tinge. There was a nest of small bowel that appeared to form the wall of
this cavity which was all freed up. A large Jack wound retractor was placed and the bowel was run from the ligament of Treitz to the ligament of Treves. Though there was many indurated areas of small bowel with fibrinous exudate plastered over
it no enterotomy was readily identified. There was a small serosal tear near the ligament of Treves which was repaired with 3-0 Vicryl pops in a Lembert fashion. The appendix was identified and though not inflamed or the source of perforation did
appear somewhat hyperemic and we elected to do a prophylactic appendectomy with suture ligation of the base with 2-0 silk ties followed by a 3-0 Vicryl pursestring suture to imbricate the stump. As no clear source was identified I called my partner
Dr. Julian in to assist. Our incision was extended cephalad. The gallbladder was identified and normal as was the stomach and duodenum. We did have anesthesia place an NG tube and insufflate the stomach and a leak test was performed with with no
evidence of air bubbles. There was purulent fluid in the right and left upper quadrants which were washed out. We then turned our attention to the:. The right colon transverse colon and descending colon all appeared normal. The sigmoid colon had
some fibrinous exudate extending down into the pelvis but this was felt to be secondary to the abscess cavity and reactive. A rigid proctosigmoidoscopy was performed on table and a leak test was performed and again no air bubbles were noted. The
pelvis and lower quadrants were irrigated until clear with warm saline. After running the small bowel 1 last time to ensure no perforation or serosal tear was missed a 19 [place] round Luis drain was introduced through a stab incision in the left
lower quadrant and passed down into the pelvis and up the right colic gutter and secured to the skin with a 2-0 nylon suture. The abdomen was then closed with 2 0 PDS sutures anchored at each apex and run towards the middle and tied together using
0.5 cm bites with 0.5 cm advancement. Care was taken where the rectus muscle was exposed to take bites of both the anterior and posterior rectus sheaths. The subcutaneous tissue was irrigated with saline and then loosely stapled together with
intermittent Betadine soaked gold. The incision was then covered with an Aquacel dressing.
Details of the operation:
The patient was brought to the operating room and positioned supine on the operating table. General anesthesia was induced, followed by successful endotracheal intubation. An NG tube and Soliman catheter were placed. The abdomen was prepped and
draped in the usual fashion and a team timeout was performed. A generous vertical midline incision was performed and the abdomen was entered safely. We immediately encountered murky appearing fluid. The omentum appeared to be completely
enveloping the small bowel so this was carefully peeled back. It was clear the omentum formed the roof of the abscess cavity which quickly spilled into the abdomen and was suctioned out. The fluid was cultured. We then gently began teasing apart
the small bowel to open up the gonzales of the 'abscess cavity'. Though there were many areas of inflammation along the small bowel with multiple segments with extensive fibrinous exudate plastered over the serosa, no obvious enterotomy was
identified. We ran the bowel retrograde to the ligament of Treitz and then antegrade to the ligament of Treves, again without identifying an obvious source. There was 1 small serosal tear which was repaired with 3-0 Vicryl pops in a Lembert
fashion but thought to be inconsequential and not the underlying cause of his pathology. We did identify the appendix which was noninflamed but somewhat hyperemic and though not the source of perforation I elected to do prophylactic appendectomy
with suture ligation of the base with 2-0 silk ties followed by a 3-0 Vicryl pursestring to imbricate the stump. As there was no clear source identified I called my partner Dr. Julian into assist. Our incision was extended cephalad and the
gallbladder and upper abdominal viscera were better visualized. The gallbladder appeared normal as did the stomach and duodenum. We confirmed our NG tube was well-placed and had anesthesia insufflate the stomach and a leak test was performed with
no evidence of air bubbles from the stomach or duodenum. We continued milking effluent down the small bowel to see again if any air bubbles or succus could be expressed, but there was no such finding. We then turned our attention to the colon.
The right colon and transverse colon as well as the descending colon appeared completely normal. The sigmoid colon had some fibrinous exudate extending down into the pelvis but this was felt to be secondary to the abscess cavity and reactive.
Nevertheless we decided to perform a rigid proctosigmoidoscopy this time flooding the pelvis with saline to perform a leak test which was again was negative. The pelvis and all 4 quadrants were then irrigated until clear with warm saline. We ran
the bowel 1 last time to ensure no perforation or serosal tear was missed and then a 19 [place] round Luis drain was introduced through a stab incision in the left lower quadrant and passed down into the pelvis and up the right colic gutter. This
was secured at the skin with a 2-0 nylon suture. The abdomen was then closed with 0 PDS suture x 2 anchored at each apex and run towards the middle and tied together using 0.5 bites with 0.5 cm advancement. The subcutaneous tissue was irrigated
and then the skin was loosely stapled together with intermittent Betadine soaked gold. The incision was covered with an Aquacel dressing. All counts were correct at the end of procedure. The patient tolerated the procedure well. They were
extubated and taken to the recovery area hemodynamically stable with plans to be admitted to the ICU for hemodynamic monitoring.
I was the attending physician and performed the procedure with assistance from Tish and Dr. Julian. Dr. Julian was instrumental in performing the concurrent maneuvers needed for a successful leak test as well as assisting in retraction and
countertraction as well as manipulation of tissues in this fairly challenging case. I was present for all portions of the case, including skin closure.
Jaskaran Dias MD
--- NOTE | 2024-11-28 14:59 | CM ---
Chart reviewed
Bile noted in the SHENG bulb
For urgent return to the OR for exploration today
CM will cont to follow for d/c needs
Plan - TBD based on needs
--- NOTE | 2024-11-28 16:10 | W.IMMPOSTOP ---
Surgical Immed Post Op Note
-
Primary Surgeon: Jaskaran Dias MD
Assisting Surgeon: Ryan Guerrero MD (PGY1)
Pre-op Diagnosis: Perforated viscus
Post-op Diagnosis: Perforated diverticulitis ([place] 4)
Procedure Performed:
1. Exploratory laparotomy
2. Open sigmoidectomy
3. Abdominal washout
Anesthesia Type: General
Specimen / Cultures:
1. Sigmoid colon
Estimated Blood Loss: 23 cc
Complications: None
Operative Findings: Once again matted small bowel was identified however enteric contents were also noted. After exploration of the small bowel again no enterotomy was found however exploration of the sigmoid did identify a site of perforation. It
does appear as if there was a epiploic appendage over this area that probably sealed the colon off on his previous exploration. An open sigmoidectomy was performed. I did speak patient preoperatively and confirmed with his and
intraoperatively that he did not want stoma. Given the degree of contamination, I elected to leave him in discontinuity with plans for a takeback and colorectal anastomosis early next week after allowing time for the inflammation in his tissues to
subside. The proximal sigmoid colon was taken with 80 purple ROSA MARIA stapler and the distal end using a 60 TA blue load. A 19 Amhar[place] round drain was replaced and passed across the surgical field.
POST OP PLAN:
Imaging: None
Labs: Routine AM
Diet: Strict NPO, NG tube to low intermittent wall suction
Analgesia: Tylenol 650mg q6 Donny, Rebeca 5mg q6 PRN, Dilaudid 0.5mg q2h PRN
Neuro/vascular checks: q4h
AC/AP: Hold Therapeutic AC, Ok for DVT PPx
Activity: Ad Amelia
Wound/Incisions/Drains: Routine
Abx: Continue antibiotics
Dispo: RNF, anticipate return to the OR Monday
[2024-11-28] MEDS: ZOSYN IV (16:25)
--- NOTE | 2024-11-28 17:30 | PTCARENOTE ---
Received patient from PACU via bed. Pt AAOX3. Pox: 95% 2L NC. IVFs infusing without difficulty. NSR on manager monitoring. at bedside. Call acuna within reach. Plan of care ongoing.
[2024-11-28] MEDS: LOVENOX 40 MG SC (18:14)
[2024-11-28] MEDS: DILAUDID 1 MG IV (18:16)
[2024-11-28] MEDS: TORADOL 10 MG IV (19:55)
[2024-11-28] MEDS: D5LR 1000 IV (21:54)
[2024-11-29] MEDS: ZOSYN 50 IV ×4 (02:06→19:54)
[2024-11-29] MEDS: DILAUDID 1 MG IV ×5 (02:07→21:13)
[2024-11-29] MEDS: ZOFRAN 4 MG IV (02:12)
[2024-11-29 02:53] VITALS: BP 148/78
[2024-11-29 06:42] LABS: Hematocrit 44.6 % (39.0-52.0); Hemoglobin 15.2 g/dL (13.0-18.0); Mean Corp Hgb Conc. 34.1 g/dL (33.0-37.0); Mean Corpuscular Hgb 31.7 pg (27.0-31.0); Mean Corpuscular Volume 93.1 fL (80.0-94.0); Mean Platelet Volume 10.2 fL (7.4-10.4); Platelet Count 263 10^3/uL (130-400); Red Blood Cell Count 4.79 10^6/uL (4.70-6.10); Red Cell Dist. Width 12.7 % (11.5-14.5); White Blood Cell Count 10.6 10^3/uL (4.8-10.8)
[2024-11-29 06:50] LABS: Blood Urea Nitrogen 21 mg/dl (9-20); Calcium 7.4 mg/dl (8.4-10.2); Carbon Dioxide 27 mmol/L (22-30); Chloride 105 mmol/L (98-107); Estimated Creatinine Clearance > 125 ml/min; Glucose 134 mg/dl (70-99); Potassium 4.2 mmol/L (3.5-5.1); Sodium 140 mmol/L (135-145); eGFR > 60.00
[2024-11-29 07:02] VITALS: BP 137/83
[2024-11-29] MEDS: NSS (PRESERVATIVE FREE) 10 ML IV (08:40)
[2024-11-29] MEDS: PROTONIX IV 40 MG IV (08:40)
[2024-11-29 08:44] LABS: % Basophils 0.2 % (0-2); % Eosinophils 0.1 % (0-6); % Immature Granulocytes 0.7 % (0-0.5); % Lymphocytes 9.7 % (20.5-51.1); % Neutrophils 80.3 % (42.2-75.2); Absolute Immature Granulocytes 0.1 10^3/uL (0-0.05); Absolute Neutrophils 8.5 10^3/uL (1.4-6.5); Nucleated Red Blood Cells % 0 % (-)
[2024-11-29] MEDS: TORADOL 10 MG IV ×3 (10:11→23:55)
[2024-11-29] MEDS: D5LR 1000 IV (11:44)
--- NOTE | 2024-11-29 12:28 | CM ---
Chart reviewed. Met with pt
POD #1 - exp lap
NPO to sx, IFV's, IV antibiotics
Given info for PCP
CM will follow for d/c needs
Plan - TBD based on needs
--- NOTE | 2024-11-29 12:43 | W.PN.GS2 ---
Addendum entered and electronically signed by Placido Ervin MD 11/29/24 16:04:
tentatively for OR tomorrow 8am
Original Note:
Today's Communication / Plan
-
Return to OR planning in progress, timing TBD
NPO/NGT/IVF
Assessment / Plan
-
Assessment: 49-year-old male with no significant past medical or surgical history who presented to our hospital on 11/25/2024 with a 2-day history of acute onset abdominal pain found to have intra-abdominal free fluid and free air.
PATTI present on admission secondary to hypovolemia; resolution with IVF hydration. Sepsis POA now resolved with surgical intervention for source control and antibiotics.
POD #4 status post exploratory laparotomy, drainage of intra-abdominal abscess, and appendectomy without clear identification of the underlying source. No stomach or duodenal pathology. Small bowel without diverticula or enterotomy. Suspected a
sigmoid diverticula that perfect and potentially sealed off on its own.
SHENG left in place during initial surgery subsequently demonstrated enteric contents and patient was taken back to the OR for management
POD #1 ex lap for abdominal washout with open sigmoidectomy for perforated diverticulitis, patient in discontinuity
AFVSS
SHENG clear, serous fluid
NGT with low outputs
Assessment/plan:
NGT with strict NPO
IV fluids for hydration -D5LR at 75 mL/hour
Continue IV Zosyn
Analgesics with toradol, ofirmev and dilaudid. antiemetics prn
incentive spirometry.
Monitor quantity and character of SHENG outputs
Continue azul
Lovenox for VTE prophylaxis
Take back to the OR planned for colorectal anastomosis Monday vs this weekend after allowing time for the inflammation in his tissues to subside to allow for internal anastomosis.
Subjective Data
-
Date of Service: November 29, 2024
Patient seen and examined at bedside. Denies n/v. Pain earlier today relieved with Dilaudid and Toradol.
Objective Data
-
Intake and Output
11/28/24 11/29/24 11/30/24
06:59 06:59 06:59
Intake Total 2260 / 2260 2009
Output Total 525 / 525 1600 / 1600
Balance 1735 / 1735 410 / 410
Intake:
Oral fluids 2160 / 2160 480 / 480
IV fluids (Total) 1350 / 1350
NOrmosol 150 / 150
IV piggybacks 100 / 100 180 / 180
Amount instilled into GI Tube ( 0 / 0
Total)
[place] Sump 0 / 0
Output:
Drain Output (Total) 175 / 175 150 / 150
Left Abdomen Tereso-Crespo A 80 / 80 150 / 150
Right 95 / 95
Gastrointestinal tube output ( 50 / 50 0 / 0
Total)
[place] Sump 50 / 50 0 / 0
Urine, Azul 1450 / 1450
Urine, Voided 300 / 300
Other:
Number of approximated MODERATE 3
amounts of urine
Vital Signs
Temp Pulse Resp BP Pulse Ox
98 F 87 18 137/83 97
11/29/24 07:02 11/29/24 07:02 11/29/24 07:02 11/29/24 07:02 11/29/24 10:56
Lab Results
11/29/24 04:41
11/29/24 04:41
Calcium 7.4 mg/dl (8.4-10.2) L 11/29/24 04:41
Total Bilirubin 1.4 mg/dl (0.2-1.3) H 11/25/24 11:14
AST 31 U/L (17-59) 11/25/24 11:14
ALT 33 U/L (0-50) 11/25/24 11:14
Alkaline Phosphatase 38 U/L (38-126) 11/25/24 11:14
Total Protein 6.8 g/dl (6.3-8.2) 11/25/24 11:14
Albumin 4.0 g/dl (3.5-5.0) 11/25/24 11:14
Physical Exam
-
NAD, AAOx3
ABD: Softly distended, mild tenderness to palpation
Midline incision with Aquacel dressing
SHENG with serous fluid
[2024-11-29] MEDS: OFIRMEV 100 IV (15:30)
[2024-11-29 15:41] VITALS: BP 145/85
[2024-11-29] MEDS: LOVENOX 40 MG SC (17:16)
[2024-11-29 19:05] VITALS: BP 133/79
[2024-11-29 23:05] VITALS: BP 137/76
[2024-11-30] VITALS (15 sets, daily range): BP systolic 0–166; BP diastolic 78–94; BMI 27.6
[2024-11-30] MEDS: ZOSYN 50 IV ×3 (02:10→19:12)
[2024-11-30] MEDS: DILAUDID 1 MG IV ×2 (02:21→15:54)
[2024-11-30] MEDS: D5LR 1000 IV ×2 (06:02→15:57)
[2024-11-30] MEDS: DILAUDID 0.5 MG IV ×4 (06:02→22:59)
[2024-11-30 06:54] LABS: Blood Urea Nitrogen 23 mg/dl (9-20); Calcium 7.5 mg/dl (8.4-10.2); Carbon Dioxide 32 mmol/L (22-30); Chloride 106 mmol/L (98-107); Estimated Creatinine Clearance > 125 ml/min; Glucose 138 mg/dl (70-99); Potassium 4.2 mmol/L (3.5-5.1); Sodium 143 mmol/L (135-145); eGFR > 60.00
[2024-11-30 07:06] LABS: % Basophils 0.2 % (0-2); % Eosinophils 0.1 % (0-6); % Lymphocytes 7.9 % (20.5-51.1); % Monocytes 7.5 % (1.7-9.3); % Neutrophils 83.3 % (42.2-75.2); Absolute Immature Granulocytes 0.2 10^3/uL (0-0.05); Absolute Lymphocytes 1.3 10^3/uL (1.2-3.4); Absolute Monocytes 1.2 10^3/uL (0.1-0.6); Absolute Neutrophils 13.5 10^3/uL (1.4-6.5); Hematocrit 41.7 % (39.0-52.0); Hemoglobin 14.2 g/dL (13.0-18.0); Mean Corp Hgb Conc. 34.1 g/dL (33.0-37.0); Mean Corpuscular Hgb 31.9 pg (27.0-31.0); Mean Corpuscular Volume 93.7 fL (80.0-94.0); Mean Platelet Volume 10.2 fL (7.4-10.4); Nucleated Red Blood Cells % 0 % (-); Platelet Count 338 10^3/uL (130-400); Red Blood Cell Count 4.45 10^6/uL (4.70-6.10); Red Cell Dist. Width 12.6 % (11.5-14.5); White Blood Cell Count 16.2 10^3/uL (4.8-10.8)
[2024-11-30] MEDS: PROTONIX IV 40 MG IV (07:39)
[2024-11-30] MEDS: NSS (PRESERVATIVE FREE) 10 ML IV (07:39)
--- NOTE | 2024-11-30 07:50 | W.PN.GS2 ---
Today's Communication / Plan
-
DC NG if small bowel follow-through negative, Azul
Plan for small bowel follow-through
Assessment / Plan
-
Assessment: 49-year-old male with no significant past medical or surgical history who presented to our hospital on 11/25/2024 with a 2-day history of acute onset abdominal pain found to have intra-abdominal free fluid and free air.
POD #1 ex lap for abdominal washout and drainage of intra-abdominal abscess with appendectomy, and rigid proctosigmoidoscopy unclear source of perforation
AFVSS
SHENG clear, serous fluid
NGT with low outputs
Assessment/plan:
Remove NG if small bowel follow-through negative, DC Azul
IV fluids for hydration -D5LR at 75 mL/hour
Continue IV Zosyn
Analgesics with toradol, ofirmev and dilaudid. antiemetics prn
incentive spirometry.
Monitor quantity and character of SHENG outputs
Time Spent
Total Time Spent with Patient (in minutes): 20
Subjective Data
-
Delayed entry note for date of Service: November 27, 2024
Patient seen and examined.
Interval Events:
No acute events overnight. Slept well. Pain Controlled. Denies Nausea/Vomiting, -bowel function.
Objective Data
-
Intake and Output
11/29/24 11/30/24 12/01/24
06:59 06:59 06:59
Intake Total 2009 850 / 850
Output Total 1600 / 1600 1065 / 1065
Balance 410 / 410 -215 / -215
Intake:
Oral fluids 480 / 480
IV fluids (Total) 1350 / 1350 750 / 750
NOrmosol 150 / 150
IV piggybacks 180 / 180 100 / 100
Amount instilled into GI Tube ( 0 / 0
Total)
[place] Sump 0 / 0
Output:
Drain Output (Total) 150 / 150 365 / 365
Left Abdomen Tereso-Crespo A 150 / 150 365 / 365
Gastrointestinal tube output ( 0 / 0 300 / 300
Total)
[place] Sump 0 / 0 300 / 300
Urine, Azul 1450 / 1450
Urine, Voided 400 / 400
Vital Signs
Temp Pulse Resp BP Pulse Ox
98.7 F 90 18 129/79 96
11/30/24 07:37 11/30/24 07:37 11/30/24 07:37 11/30/24 07:37 11/30/24 07:37
Lab Results
11/30/24 05:33
11/30/24 05:33
Calcium 7.5 mg/dl (8.4-10.2) L 11/30/24 05:33
Total Bilirubin 1.4 mg/dl (0.2-1.3) H 11/25/24 11:14
AST 31 U/L (17-59) 11/25/24 11:14
ALT 33 U/L (0-50) 11/25/24 11:14
Alkaline Phosphatase 38 U/L (38-126) 11/25/24 11:14
Total Protein 6.8 g/dl (6.3-8.2) 11/25/24 11:14
Albumin 4.0 g/dl (3.5-5.0) 11/25/24 11:14
Physical Exam
-
GENERAL/NEURO: Awake, Alert, no distress
CHEST: Unlabored breathing on RA
ABDOMEN: Soft, appropriately tender, mildly distended, incision dressing with stable strikethrough. SHENG serosanguineous
Patient has a azul catheter: Yes
Patient has a central line: No
--- NOTE | 2024-11-30 07:54 | W.PN.GS2 ---
Today's Communication / Plan
-
Return to the OR today
Assessment / Plan
-
Assessment: 49-year-old male with no significant past medical or surgical history who presented to our hospital on 11/25/2024 with a 2-day history of acute onset abdominal pain found to have intra-abdominal free fluid and free air.
PATTI present on admission secondary to hypovolemia; resolution with IVF hydration. Sepsis POA now resolved with surgical intervention for source control and antibiotics.
POD #5 status post exploratory laparotomy, drainage of intra-abdominal abscess, and appendectomy without clear identification of the underlying source. No stomach or duodenal pathology. Small bowel without diverticula or enterotomy. Suspected a
sigmoid diverticula that perforated and potentially sealed off on its own. SHENG left in place during initial surgery subsequently demonstrated enteric contents and patient was taken back to the OR for management
POD #2 ex lap for abdominal washout with open sigmoidectomy for perforated diverticulitis, patient in discontinuity.
Planned return to the OR today, likely stoma placement given continued bilious output
Continue IV antibiotics
Time Spent
Total Time Spent with Patient (in minutes): 20
Subjective Data
-
Date of Service: November 30, 2024
Interval Events:
No acute events overnight. Slept well. Pain Controlled. Denies Nausea/Vomiting, -bowel function.
Objective Data
-
Intake and Output
11/29/24 11/30/24 12/01/24
06:59 06:59 06:59
Intake Total 2009 850 / 850
Output Total 1600 / 1600 1065 / 1065
Balance 410 / 410 -215 / -215
Intake:
Oral fluids 480 / 480
IV fluids (Total) 1350 / 1350 750 / 750
NOrmosol 150 / 150
IV piggybacks 180 / 180 100 / 100
Amount instilled into GI Tube ( 0 / 0
Total)
[place] Sump 0 / 0
Output:
Drain Output (Total) 150 / 150 365 / 365
Left Abdomen Tereso-Crespo A 150 / 150 365 / 365
Gastrointestinal tube output ( 0 / 0 300 / 300
Total)
[place] Sump 0 / 0 300 / 300
Urine, Azul 1450 / 1450
Urine, Voided 400 / 400
Vital Signs
Temp Pulse Resp BP Pulse Ox
98.7 F 90 18 129/79 96
11/30/24 07:37 11/30/24 07:37 11/30/24 07:37 11/30/24 07:37 11/30/24 07:37
Lab Results
11/30/24 05:33
11/30/24 05:33
Calcium 7.5 mg/dl (8.4-10.2) L 11/30/24 05:33
Total Bilirubin 1.4 mg/dl (0.2-1.3) H 11/25/24 11:14
AST 31 U/L (17-59) 11/25/24 11:14
ALT 33 U/L (0-50) 11/25/24 11:14
Alkaline Phosphatase 38 U/L (38-126) 11/25/24 11:14
Total Protein 6.8 g/dl (6.3-8.2) 11/25/24 11:14
Albumin 4.0 g/dl (3.5-5.0) 11/25/24 11:14
Physical Exam
-
GENERAL/NEURO: Awake, Alert, no distress
CHEST: Unlabored breathing on RA
ABDOMEN: Soft, appropriately tender, nondistended, NG tube with bilious output, incisions with stable strikethrough, SHENG bilious.
Patient has a azul catheter: No
Patient has a central line: No
--- NOTE | 2024-11-30 10:40 | W.IMMPOSTOP ---
Surgical Immed Post Op Note
-
Primary Surgeon: Jaskaran Dias MD
Assisting Surgeon: Placido Ervin MD
Pre-op Diagnosis: Perforated diverticulitis
Post-op Diagnosis: Same
Procedure Performed:
1. Exploratory laparotomy (planned takeback)
2. Partial sigmoidectomy with end colostomy
Anesthesia Type: General
Specimen / Cultures: Sigmoid stump
Estimated Blood Loss: 27 cc
Complications: None
Operative Findings: Succus noted in the abdomen emanating from pinpoint hole along the staple line of the sigmoid stump, abdomen washed out. Rectal stump appeared healthy and viable. Given degree of continued contamination, we elected to perform
an end colostomy. The white line of Toldt was incised and the mesentery of the descending colon was medialized and divided to provide sufficient laxity to reach the abdominal wall. A left upper quadrant ostomy was created and the colon was pulled
through to the surface. A 19 Azeri round drain was replaced into the abdomen after thoroughly irrigating with 2 L of warm saline. The abdomen was closed with running wound #1 Stratafix barbed suture. The skin was loosely closed with garry. A
healthy portion of the sigmoid colon was identified and transected. The remaining stump was passed off as specimen. The ostomy was then matured in a Irina like fashion though given how stiff the colon was from the surrounding inflammation this
was difficult to do and the ostomy was viable but fairly flush with the skin.
POST OP PLAN:
Imaging: None
Labs: Routine AM
Diet: N.p.o., IV fluids, NG tube to low intermittent wall suction. Will initiate TPN
Analgesia: IV Tylenol, Dilaudid 0.5mg q2h PRN
Neuro/vascular checks: q4h
AC/AP: DVT PPx, SCDs
Activity: Ad Amelia
Wound/Incisions/Drains: Routine, SHENG to bulb suction, NG tube to low intermittent wall suction. Stoma care
Abx: Zosyn
Dispo: RNF
[2024-11-30] MEDS: ZOSYN IV (11:31)
[2024-11-30 11:55] LABS: ALT (SGPT) 19 U/L (0-50); AST (SGOT) 20 U/L (17-59); Albumin 2.4 g/dl (3.5-5.0); Alkaline Phosphatase 35 U/L (38-126); Direct Bilirubin 0.8 mg/dl (0.0-0.4); Magnesium 2.7 mg/dl (1.6-2.3); Phosphorus 2.7 mg/dl (2.5-4.5); Total Bilirubin 1.3 mg/dl (0.2-1.3); Total Protein 4.8 g/dl (6.3-8.2); Triglycerides 93 mg/dl (10-149)
[2024-11-30] MEDS: NOVOLOG FLEXPEN-LOW RESISTANCE SC ×2 (14:48→17:28)
[2024-11-30] MEDS: THIAMINE INJECTION 100 MG IV (16:02)
[2024-11-30] MEDS: LOVENOX 40 MG SC (17:25)
[2024-11-30] MEDS: Parenteral Nutrition, Central 890 IV (20:53)
[2024-11-30] MEDS: OFIRMEV 100 IV (21:13)
[2024-11-30 23:53] LABS: Glucose - Point of Care 137 mg/dl (70-99)
[2024-12-01] MEDS: ZOSYN 50 IV ×4 (01:45→19:57)
[2024-12-01] MEDS: DILAUDID 0.5 MG IV ×4 (02:02→16:39)
[2024-12-01 03:32] VITALS: BP 139/78
[2024-12-01 05:42] LABS: % Basophils 0.2 % (0-2); % Immature Granulocytes 1.3 % (0-0.5); % Lymphocytes 8.7 % (20.5-51.1); % Monocytes 6.7 % (1.7-9.3); % Neutrophils 83.1 % (42.2-75.2); Absolute Immature Granulocytes 0.2 10^3/uL (0-0.05); Absolute Lymphocytes 1.4 10^3/uL (1.2-3.4); Absolute Monocytes 1.1 10^3/uL (0.1-0.6); Absolute Neutrophils 13.1 10^3/uL (1.4-6.5); Hematocrit 38.4 % (39.0-52.0); Hemoglobin 13.1 g/dL (13.0-18.0); Mean Corp Hgb Conc. 34.1 g/dL (33.0-37.0); Mean Corpuscular Volume 93.7 fL (80.0-94.0); Nucleated Red Blood Cells % 0 % (-); Platelet Count 342 10^3/uL (130-400); Red Cell Dist. Width 12.9 % (11.5-14.5); White Blood Cell Count 15.8 10^3/uL (4.8-10.8)
[2024-12-01 06:00] VITALS: BMI 28.0
[2024-12-01 06:09] LABS: Blood Urea Nitrogen 26 mg/dl (9-20); Calcium 7.7 mg/dl (8.4-10.2); Carbon Dioxide 31 mmol/L (22-30); Chloride 109 mmol/L (98-107); Estimated Creatinine Clearance > 125 ml/min; Glucose 146 mg/dl (70-99); Magnesium 2.7 mg/dl (1.6-2.3); Potassium 4.4 mmol/L (3.5-5.1); Sodium 143 mmol/L (135-145); eGFR > 60.00
[2024-12-01 06:11] LABS: Glucose - Point of Care 124 mg/dl (70-99)
[2024-12-01] MEDS: NOVOLOG FLEXPEN-LOW RESISTANCE SC ×4 (06:24→18:40)
[2024-12-01 07:05] VITALS: BP 130/72
[2024-12-01 07:31] LABS: Glucose - Point of Care 121 mg/dl (70-99)
[2024-12-01] MEDS: PROTONIX IV 40 MG IV (08:17)
[2024-12-01] MEDS: THIAMINE INJECTION 100 MG IV (08:18)
[2024-12-01] MEDS: NSS (PRESERVATIVE FREE) 10 ML IV (08:18)
[2024-12-01 11:00] VITALS: BP 133/64
[2024-12-01] MEDS: DILAUDID 1 MG IV ×2 (11:38→21:21)
[2024-12-01 12:52] LABS: Glucose - Point of Care 122 mg/dl (70-99)
--- NOTE | 2024-12-01 14:14 | W.PN.GS2 ---
Today's Communication / Plan
-
TPN
Azul
PT
IV abx
NPO/NGT
Assessment / Plan
-
Assessment: 49-year-old male with no significant past medical or surgical history who presented to our hospital on 11/25/2024 with a 2-day history of acute onset abdominal pain found to have intra-abdominal free fluid and free air.
PATTI present on admission secondary to hypovolemia; resolution with IVF hydration. Sepsis POA now resolved with surgical intervention for source control and antibiotics.
POD #6 status post exploratory laparotomy, drainage of intra-abdominal abscess, and appendectomy without clear identification of the underlying source. No stomach or duodenal pathology. Small bowel without diverticula or enterotomy. Suspected a
sigmoid diverticula that perforated and potentially sealed off on its own. SHENG left in place during initial surgery subsequently demonstrated enteric contents and patient was taken back to the OR for management
POD #3 ex lap for abdominal washout with open sigmoidectomy for perforated diverticulitis, patient in discontinuity.
POD #1 s/p ex lap partial sigmoidectomy and end colostomy creation
AFVSS, leukocytosis trending down
Expect ileus
Cont NPO/NGT
Cont TPN
Multimodal pain mgmt
IV abx
DVT ppx
PT eval and treat
Cont azul for today
Subjective Data
-
Date of Service: December 01, 2024
AFVSS, denies n/v with ngt to suction, pain controlled
Objective Data
-
Intake and Output
11/30/24 12/01/24 12/02/24
06:59 06:59 06:59
Intake Total 850 / 850 1624 / 1624
Output Total 1065 / 1065 1974
Balance -215 / -215 -351 / -351
Intake:
Oral fluids 0 / 0
IV fluids (Total) 750 / 750 980 / 980
NOrmosol 300 / 300
IV piggybacks 100 / 100 200 / 200
TPN/PPN 444 / 444
Amount instilled into GI Tube ( 0 / 0
Total)
[place] Sump 0 / 0
Output:
Liquid stool amount 75 / 75
Colostomy 75 / 75
Drain Output (Total) 365 325 / 325
Left Abdomen Tereso-Crespo A 365 325 / 325
Gastrointestinal tube output ( 300 / 300 400 / 400
Total)
[place] Sump 300 / 300 400 / 400
Urine, Azul 1175 / 1175
Urine, Voided 400 / 400
Vital Signs
Temp Pulse Resp BP Pulse Ox
97.8 F 82 16 133/64 95
12/01/24 11:00 12/01/24 11:00 12/01/24 11:00 12/01/24 11:00 12/01/24 11:00
Lab Results
12/01/24 05:17
12/01/24 05:17
Calcium 7.7 mg/dl (8.4-10.2) L 12/01/24 05:17
Phosphorus 3.0 mg/dl (2.5-4.5) 12/01/24 05:17
Magnesium 2.7 mg/dl (1.6-2.3) H 12/01/24 05:17
Total Bilirubin 1.3 mg/dl (0.2-1.3) 11/30/24 05:33
Direct Bilirubin 0.8 mg/dl (0.0-0.4) H 11/30/24 05:33
AST 20 U/L (17-59) 11/30/24 05:33
ALT 19 U/L (0-50) 11/30/24 05:33
Alkaline Phosphatase 35 U/L (38-126) L 11/30/24 05:33
Total Protein 4.8 g/dl (6.3-8.2) L 11/30/24 05:33
Albumin 2.4 g/dl (3.5-5.0) L 11/30/24 05:33
Physical Exam
-
Gen: NAD
Abd: soft, approp ttp, stoma slightly purple but viable with gas and some liquid stool in the bag, incision cdi, drain ss
Patient has a azul catheter: Yes
Patient has a central line: Yes
[2024-12-01 15:06] VITALS: BP 137/74
[2024-12-01] MEDS: LOVENOX 40 MG SC (16:46)
[2024-12-01 18:35] LABS: Glucose - Point of Care 106 mg/dl (70-99)
[2024-12-01] MEDS: Parenteral Nutrition, Central 1800 IV (21:10)
[2024-12-01 23:12] VITALS: BP 144/78
[2024-12-02 00:15] LABS: Glucose - Point of Care 150 mg/dl (70-99)
[2024-12-02] MEDS: NOVOLOG FLEXPEN-LOW RESISTANCE 1 UNITS SC (00:36)
[2024-12-02] MEDS: ZOSYN 50 IV ×4 (01:59→19:30)
[2024-12-02] MEDS: DILAUDID 0.5 MG IV ×3 (02:07→20:18)
[2024-12-02 05:57] LABS: Glucose - Point of Care 141 mg/dl (70-99)
[2024-12-02 06:00] VITALS: BMI 27.9
[2024-12-02] MEDS: NOVOLOG FLEXPEN-LOW RESISTANCE SC ×4 (06:03→23:32)
[2024-12-02 06:14] LABS: Hemoglobin 12.5 g/dL (13.0-18.0); Mean Corp Hgb Conc. 33.8 g/dL (33.0-37.0); Mean Corpuscular Hgb 31.8 pg (27.0-31.0); Mean Corpuscular Volume 94.1 fL (80.0-94.0); Mean Platelet Volume 9.8 fL (7.4-10.4); Platelet Count 308 10^3/uL (130-400); Red Blood Cell Count 3.93 10^6/uL (4.70-6.10); Red Cell Dist. Width 12.4 % (11.5-14.5)
[2024-12-02 06:41] LABS: ALT (SGPT) 24 U/L (0-50); AST (SGOT) 34 U/L (17-59); Albumin 2.2 g/dl (3.5-5.0); Alkaline Phosphatase 33 U/L (38-126); Blood Urea Nitrogen 21 mg/dl (9-20); Calcium 7.4 mg/dl (8.4-10.2); Carbon Dioxide 28 mmol/L (22-30); Chloride 105 mmol/L (98-107); Estimated Creatinine Clearance > 125 ml/min; Glucose 127 mg/dl (70-99); Magnesium 1.9 mg/dl (1.6-2.3); Phosphorus 2.8 mg/dl (2.5-4.5); Sodium 140 mmol/L (135-145); Total Bilirubin 0.7 mg/dl (0.2-1.3); Total Protein 4.7 g/dl (6.3-8.2); Triglycerides 123 mg/dl (10-149); eGFR > 60.00
[2024-12-02 06:47] LABS: Potassium 3.9 mmol/L (3.5-5.1)
[2024-12-02 08:30] VITALS: BP 154/99
[2024-12-02] MEDS: NSS (PRESERVATIVE FREE) 10 ML IV (08:49)
[2024-12-02] MEDS: PROTONIX IV 40 MG IV (08:49)
[2024-12-02] MEDS: THIAMINE INJECTION 100 MG IV (08:50)
--- NOTE | 2024-12-02 09:29 | WOUNDNOTE ---
[facility] RN Note: Patient s/p 3 abdominal surgeries, last one 11/30/24 exploratory lap with end colostomy. Stoma pink. Appliance intact. +Flatus. Small brown liquid in pouch. Instructed patient how to empty pouch. Colostomy supplies (Cb wafer #
[id number], Yumiko seals, Bc pouch #[id number]) and colostomy teaching folder left in room. Patient signed [employer] ostomy secure starter kit authorization fax. L coccyx/buttocks with dark red skin stage 1 pressure injury suspect may open to stage 2.
Sacral shaped silicone border foam applied. Patient turned to R semi side lying position. Heels off bed with air chair cushion. Patient can turn self slowly in bed. Patient stated he will be getting out of bed today. Instructed patient pressure
injury prevention measures and to take air chair cushion when discharged. Updated PCT Juancho who notified LOLA Cruz. Patient on TPN. Recommended VN to patient when discharged. Will follow.
--- NOTE | 2024-12-02 09:39 | WOUNDNOTE ---
WOC RN note: Spoke with general surgery [employer]ECUTIVE ASSISTANT Tish Gandara who stated they plan to remove patient's post op abdominal dressing tomorrow and she stated WOC RN can remove it tomorrow and cover with dry gauze if needed during colostomy appliance change.
--- NOTE | 2024-12-02 09:44 | W.PN.GS2 ---
Today's Communication / Plan
-
NGT clamp trial
Assessment / Plan
-
Assessment: 49-year-old male with no significant past medical or surgical history who presented to our hospital on 11/25/2024 with a 2-day history of acute onset abdominal pain found to have intra-abdominal free fluid and free air.
POD #7 status post exploratory laparotomy, drainage of intra-abdominal abscess, and appendectomy without clear identification of the underlying source. No stomach or duodenal pathology. Small bowel without diverticula or enterotomy. Suspected a
sigmoid diverticula that perforated and potentially sealed off on its own. SHENG left in place during initial surgery subsequently demonstrated enteric contents and patient was taken back to the OR for management
POD #4 ex lap for abdominal washout with open sigmoidectomy for perforated diverticulitis, patient in discontinuity.
POD #2 s/p ex lap partial sigmoidectomy and end colostomy creation
AFVSS, leukocytosis slowly trending down
Expect ileus, but with some evidence of bowel recovery with +stool/flatus in stoma
On TPN given prolonged NPO
Cont NPO with sips of clears
Clamp trial of NGT
Cont TPN
Multimodal pain mgmt
IV abx
DVT ppx
PT eval and treat
Ostomy nurses following
Voiding trial today
Subjective Data
-
Date of Service: December 02, 2024
Patient seen and examined at bedside with Dr. Dias. Denies n/v. Soreness to abdomen present, analgesics are helping.
Objective Data
-
Intake and Output
12/01/24 12/02/24 12/03/24
06:59 06:59 06:59
Intake Total 1624 / 1624 4033 / 4033
Output Total 1974 3250 / 3250
Balance -351 / -351 783 / 783
Intake:
Oral fluids 0 / 0 3113 / 3113
IV fluids (Total) 980 / 980
NOrmosol 300 / 300
IV piggybacks 200 / 200 100 / 100
TPN/PPN 444 / 444 820 / 820
Amount instilled into GI Tube ( 0 / 0
Total)
[place] Sump 0 / 0
Output:
Liquid stool amount 75 / 75 400 / 400
Colostomy 75 / 75 400 / 400
Drain Output (Total) 325 / 325 75 / 75
Left Abdomen Tereso-Crespo A 325 / 325 75 / 75
Gastrointestinal tube output ( 400 / 400 1050 / 1050
Total)
[place] Sump 400 / 400 1050 / 1050
Urine, Azul 1175 / 1175 1725 / 1725
Vital Signs
Temp Pulse Resp BP Pulse Ox
98.0 F 68 16 154/99 96
12/02/24 08:30 12/02/24 08:30 12/02/24 08:30 12/02/24 08:30 12/02/24 08:30
Lab Results
12/02/24 05:48
12/02/24 05:48
Calcium 7.4 mg/dl (8.4-10.2) L 12/02/24 05:48
Phosphorus 2.8 mg/dl (2.5-4.5) 12/02/24 05:48
Magnesium 1.9 mg/dl (1.6-2.3) 12/02/24 05:48
Total Bilirubin 0.7 mg/dl (0.2-1.3) 12/02/24 05:48
Direct Bilirubin 0.8 mg/dl (0.0-0.4) H 11/30/24 05:33
AST 34 U/L (17-59) 12/02/24 05:48
ALT 24 U/L (0-50) 12/02/24 05:48
Alkaline Phosphatase 33 U/L (38-126) L 12/02/24 05:48
Total Protein 4.7 g/dl (6.3-8.2) L 12/02/24 05:48
Albumin 2.2 g/dl (3.5-5.0) L 12/02/24 05:48
Physical Exam
-
Gen: NAD
Abd: soft, approp ttp, stoma dark but viable with gas and some liquid stool in the bag, incision cdi, drain ss
Patient has a azul catheter: No
Patient has a central line: Yes
[2024-12-02 10:13] VITALS: BP 140/73; PULSE 69; O2SAT 94
[2024-12-02 12:10] LABS: Glucose - Point of Care 128 mg/dl (70-99)
--- NOTE | 2024-12-02 12:53 | CM ---
Chart reviewed and met with pt
New ostomy
Wound care following
Discussed VN with pt at discharge - Pt agreed - Referral sent to [facility]
Plan - anticipate home with [facility] when medically ready
--- NOTE | 2024-12-02 13:44 | VNURNOTE ---
Home Health Liaison met with patient at bedside to discuss [facility] nurse/therapy, visits, schedule and homebound status. Patient was very tired and requested to speak with liaison another time. Patient is agreeable to VN. [facility] brochure provided
with contact information.
[facility] referral in Saved status in Care Port.
[2024-12-02] MEDS: FLUSH (NSS) 1 FLUSH IV (13:59)
--- NOTE | 2024-12-02 14:10 | PTCARENOTE ---
pt tolerated clamping trial for NG tube-tube clamped as ordered from 0940 to 1340. denies nausea or pain. NG tube reconnected to suction and no output noted-tube removed per order. pt given ice water and instructed sips of clears, will observe.
[2024-12-02 15:00] VITALS: BP 152/73
--- NOTE | 2024-12-02 17:12 | WOUNDNOTE ---
WOC RN note: carrol/gladys Vivar, spoke with Marcy, ordered patient a Cb ostomy secure starter kit.
[2024-12-02 17:20] LABS: Glucose - Point of Care 108 mg/dl (70-99)
[2024-12-02] MEDS: LOVENOX 40 MG SC (17:27)
--- NOTE | 2024-12-02 18:18 | PTCARENOTE ---
pt tolerated out of bed to chair for 2 hours. tolerating sips of clear liquids without c/o nausea or increased abdominal discomfort. care ongoing.
[2024-12-02] MEDS: Parenteral Nutrition, Central 1800 IV (21:10)
[2024-12-02 23:08] VITALS: BP 146/70
[2024-12-02 23:28] LABS: Glucose - Point of Care 131 mg/dl (70-99)
[2024-12-03] MEDS: ZOSYN 50 IV ×4 (02:16→21:24)
[2024-12-03 05:01] LABS: Blood Urea Nitrogen 15 mg/dl (9-20); Calcium 7.5 mg/dl (8.4-10.2); Carbon Dioxide 25 mmol/L (22-30); Chloride 105 mmol/L (98-107); Estimated Creatinine Clearance > 125 ml/min; Glucose 123 mg/dl (70-99); Magnesium 1.7 mg/dl (1.6-2.3); Phosphorus 3.3 mg/dl (2.5-4.5); Potassium 3.9 mmol/L (3.5-5.1); Sodium 136 mmol/L (135-145); eGFR > 60.00
[2024-12-03 05:56] VITALS: BMI 27.7
[2024-12-03] MEDS: DILAUDID 0.5 MG IV (05:58)
[2024-12-03 05:59] LABS: Glucose - Point of Care 110 mg/dl (70-99)
[2024-12-03] MEDS: NOVOLOG FLEXPEN-LOW RESISTANCE SC ×4 (05:59→23:51)
[2024-12-03 06:59] VITALS: BP 158/74
--- NOTE | 2024-12-03 07:59 | W.PN.GS2 ---
Today's Communication / Plan
-
-- Clears
-- TPN renewed for today, expect can stop tomorrow if tolerating diet
-- Pain control: Tylenol, Toradol, Tramadol, IV Dilaudid PRN
Assessment / Plan
-
Assessment: 49-year-old male with no significant past medical or surgical history who presented to our hospital on 11/25/2024 with a 2-day history of acute onset abdominal pain found to have intra-abdominal free fluid and free air.
POD #8 status post exploratory laparotomy, drainage of intra-abdominal abscess, and appendectomy without clear identification of the underlying source. No stomach or duodenal pathology. Small bowel without diverticula or enterotomy. Suspected a
sigmoid diverticula that perforated and potentially sealed off on its own. SHENG left in place during initial surgery subsequently demonstrated enteric contents and patient was taken back to the OR for management
POD #5 ex lap for abdominal washout with open sigmoidectomy for perforated diverticulitis, patient in discontinuity.
POD #3 s/p ex lap partial sigmoidectomy and end colostomy creation
AFVSS, leukocytosis persists on last check (no labs today, recheck ordered for tomorrow)
Expect ileus, resolving with evidence of bowel recovery with +stool/flatus in stoma
On TPN given prolonged NPO, will resume for today likely can stop tomorrow
-- Clears
-- TPN renewed for today, expect can stop tomorrow if tolerating diet
-- Pain control: Tylenol, Toradol, Tramadol, IV Dilaudid PRN
-- Abx: Zosyn
-- DVT: Lovenox
-- PT eval and treat
-- Ostomy nurses following
Subjective Data
-
Date of Service: December 03, 2024
No complaints. Feels improved. No nausea, vomiting, increased abdominal distention following NGT removal. Continues to pass loose stool via ostomy. No fevers. Ambulating around room. Voiding.
Objective Data
-
Intake and Output
12/02/24 12/03/24 12/04/24
06:59 06:59 06:59
Intake Total 4033 / 4033 2240 / 2240
Output Total 3250 / 3250 2860 / 2860
Balance 783 / 783 -620 / -620
Intake:
Oral fluids 3113 / 3113 240 / 240
IV piggybacks 100 / 100 200 / 200
TPN/PPN 820 / 820 1800 / 1800
Output:
Liquid stool amount 400 / 400 410 / 410
Colostomy 400 / 400 410 / 410
Drain Output (Total) 75 / 75 70 / 70
Left Abdomen Tereso-Crespo A 75 / 75 70 / 70
Gastrointestinal tube output ( 1050 / 1050
Total)
[place] Sump 1050 / 1050
Urine, [place] 1725 / 1725
Urine, Voided 2380 / 2380
Vital Signs
Temp Pulse Resp BP Pulse Ox
98.1 F 70 18 146/70 96
12/02/24 23:08 12/02/24 23:08 12/02/24 23:08 12/02/24 23:08 12/02/24 23:08
Lab Results
12/02/24 05:48
12/03/24 04:14
Calcium 7.5 mg/dl (8.4-10.2) L 12/03/24 04:14
Phosphorus 3.3 mg/dl (2.5-4.5) 12/03/24 04:14
Magnesium 1.7 mg/dl (1.6-2.3) 12/03/24 04:14
Total Bilirubin 0.7 mg/dl (0.2-1.3) 12/02/24 05:48
Direct Bilirubin 0.8 mg/dl (0.0-0.4) H 11/30/24 05:33
AST 34 U/L (17-59) 12/02/24 05:48
ALT 24 U/L (0-50) 12/02/24 05:48
Alkaline Phosphatase 33 U/L (38-126) L 12/02/24 05:48
Total Protein 4.7 g/dl (6.3-8.2) L 12/02/24 05:48
Albumin 2.2 g/dl (3.5-5.0) L 12/02/24 05:48
Physical Exam
-
Gen: NAD
Abd: soft, mild/moderate tenderness, ND, no diffuse peritonitis, SHENG seropurulent, midline dressing with strikethrough, ostomy viable, liquid stool in appliance
[2024-12-03 08:11] LABS: Glucose - Point of Care 124 mg/dl (70-99)
--- NOTE | 2024-12-03 09:40 | VNURNOTE ---
Addendum entered by Sandra Chen RN 12/03/24 09:42:
[facility] liaison confirmed that Dr Dias will sign VN orders until pt sees [facility] after [facility].
Original Note:
Home Health Liaison spoke with patient's spouse Mallorie to discuss [facility] nurse/therapy, visits, schedule and homebound status. She is agreeable and understands that visits at home will be 2-3 x per week to assess and teach medical management,
colostomy care and management.
[facility] brochure provided with contact information left at bedside as well as [facility] brochure. Advised spouse to make appt w/[facility]idency clinic once pt cleared for DC home. She verbalized understanding. Spouse is aware that [facility] will contact
them for start of care in 1-2 days after discharge from . [facility] referral updated in Care Port.
[2024-12-03] MEDS: NSS (PRESERVATIVE FREE) 10 ML IV (09:47)
[2024-12-03] MEDS: PROTONIX IV 40 MG IV (09:47)
[2024-12-03] MEDS: THIAMINE INJECTION 100 MG IV (09:48)
[2024-12-03] MEDS: TORADOL 15 MG IV ×3 (09:48→22:01)
[2024-12-03 13:05] LABS: Glucose - Point of Care 140 mg/dl (70-99)
[2024-12-03 14:57] VITALS: BP 144/78
--- NOTE | 2024-12-03 15:30 | WOUNDNOTE ---
[facility] RN NOTE: Met with patient and his Mallorie at bedside for appliance change and ostomy teaching. Midline dressing removed along with appliance. Midline incision with garry and gold intact, dry gauze dressing applied. Stoma pink but flushed
to skin, peristomal skin slightly pink. today used flat wafer with Yumiko seal and pouch. Next change will try convex wafer. Reviewed emptying, closing tail end with return demonstration, skin care and changing appliance. Patient able to assist a
little, having allot of pain during change and requested pain med from nurse. had to step out of rm a few times, states it is very overwhelming right now. She did listen close by and is willing to assist but requested another session on Monday.
She will be available in the morning until 2 pm. Answered all questions and will follow Monday or sooner if needed.
--- NOTE | 2024-12-03 15:48 | CM ---
Chart reviewed. Met with pt and his at bedside
PT/ meeting with Ostomy nurse today to review ostomy care
[facility] to follow when discharged
Discussed intermittent TPN/home infusion - pt reports no preferences
CM will contact home infusion agency/MD
Plan - anticipate home with [facility] when medically stable
[2024-12-03 16:52] VITALS: BP 130/73; PULSE 90; O2SAT 95
[2024-12-03] MEDS: DILAUDID 1 MG IV (17:15)
[2024-12-03] MEDS: LOVENOX 40 MG SC (17:16)
[2024-12-03 18:03] LABS: Glucose - Point of Care 106 mg/dl (70-99)
[2024-12-03] MEDS: Parenteral Nutrition, Central 1800 IV (21:21)
[2024-12-03 23:12] VITALS: BP 125/59
[2024-12-03 23:17] LABS: Glucose - Point of Care 140 mg/dl (70-99)
[2024-12-04] MEDS: ZOSYN 50 IV ×4 (02:18→20:35)
[2024-12-04] MEDS: DILAUDID 0.5 MG IV ×4 (02:29→20:51)
[2024-12-04 04:41] LABS: Hematocrit 36.8 % (39.0-52.0); Hemoglobin 12.7 g/dL (13.0-18.0); Mean Corp Hgb Conc. 34.5 g/dL (33.0-37.0); Mean Corpuscular Hgb 31.7 pg (27.0-31.0); Mean Corpuscular Volume 91.8 fL (80.0-94.0); Mean Platelet Volume 10.2 fL (7.4-10.4); Platelet Count 276 10^3/uL (130-400); Red Blood Cell Count 4.01 10^6/uL (4.70-6.10); White Blood Cell Count 13.2 10^3/uL (4.8-10.8)
[2024-12-04] MEDS: TORADOL 15 MG IV ×2 (05:10→14:08)
[2024-12-04 05:15] LABS: Glucose - Point of Care 108 mg/dl (70-99)
[2024-12-04] MEDS: NOVOLOG FLEXPEN-LOW RESISTANCE SC ×3 (05:18→17:05)
[2024-12-04 06:00] VITALS: BMI 27.8
[2024-12-04 07:30] VITALS: BP 143/74
[2024-12-04] MEDS: THIAMINE INJECTION 100 MG IV (07:39)
[2024-12-04] MEDS: NSS (PRESERVATIVE FREE) 10 ML IV (07:39)
[2024-12-04] MEDS: PROTONIX IV 40 MG IV (07:39)
--- NOTE | 2024-12-04 11:41 | WOUNDNOTE ---
[facility] RN NOTE: Dropped off 3 convex 2 1/4' wafers and pouches to use next pouch change. No leakage noted from current appliance applied yesterday. Teaching done with patient regarding need for convexity and will follow.
[2024-12-04 12:00] LABS: Glucose - Point of Care 111 mg/dl (70-99)
--- NOTE | 2024-12-04 13:40 | W.PN.GS2 ---
Today's Communication / Plan
-
IV abx
FLD
no further TPN planned
Assessment / Plan
-
Assessment: 49-year-old male with no significant past medical or surgical history who presented to our hospital on 11/25/2024 with a 2-day history of acute onset abdominal pain found to have intra-abdominal free fluid and free air.
POD #9 status post exploratory laparotomy, drainage of intra-abdominal abscess, and appendectomy without clear identification of the underlying source. No stomach or duodenal pathology. Small bowel without diverticula or enterotomy. Suspected a
sigmoid diverticula that perforated and potentially sealed off on its own. SHENG left in place during initial surgery subsequently demonstrated enteric contents and patient was taken back to the OR for management
POD #6 ex lap for abdominal washout with open sigmoidectomy for perforated diverticulitis, patient in discontinuity.
POD #4 s/p ex lap partial sigmoidectomy and end colostomy creation
AFVSS, leukocytosis improving
Ileus, resolving with evidence of bowel recovery with +stool/flatus in stoma
-- Adv to FLD with supplements
-- TPN not renewed
-- Pain control: Tylenol, Toradol, Tramadol, oxy, IV Dilaudid PRN
-- Abx: Zosyn
-- DVT: Lovenox
-- PT eval and treat
-- Ostomy nurses following
Subjective Data
-
Date of Service: December 04, 2024
Improving, no complaints, pain controlled with dilaudid
Objective Data
-
Intake and Output
12/03/24 12/04/24 12/05/24
06:59 06:59 06:59
Intake Total 2240 / 2240 2480 / 2480 300 / 300
Output Total 2860 / 2860 1575 / 1575
Balance -620 / -620 905 / 905 300 / 300
Intake:
Oral fluids 240 / 240 480 / 480 300 / 300
IV piggybacks 200 / 200 200 / 200
TPN/PPN 1800 / 1800 1800 / 1800
Output:
Liquid stool amount 410 / 410 225 / 225
Colostomy 410 / 410 225 / 225
Drain Output (Total) 70 50 / 50
Left Abdomen Tereso-Crespo A 70 50 / 50
Urine, Voided 2380 / 2380 1300 / 1300
Vital Signs
Temp Pulse Resp BP Pulse Ox
98.3 F 74 16 143/74 95
12/04/24 07:30 12/04/24 07:30 12/04/24 07:30 12/04/24 07:30 12/04/24 07:30
Lab Results
12/04/24 04:03
12/03/24 04:14
Calcium 7.5 mg/dl (8.4-10.2) L 12/03/24 04:14
Phosphorus 3.3 mg/dl (2.5-4.5) 12/03/24 04:14
Magnesium 1.7 mg/dl (1.6-2.3) 12/03/24 04:14
Total Bilirubin 0.7 mg/dl (0.2-1.3) 12/02/24 05:48
Direct Bilirubin 0.8 mg/dl (0.0-0.4) H 11/30/24 05:33
AST 34 U/L (17-59) 12/02/24 05:48
ALT 24 U/L (0-50) 12/02/24 05:48
Alkaline Phosphatase 33 U/L (38-126) L 12/02/24 05:48
Total Protein 4.7 g/dl (6.3-8.2) L 12/02/24 05:48
Albumin 2.2 g/dl (3.5-5.0) L 12/02/24 05:48
Physical Exam
-
Gen: NAD
Abd: soft, approp ttp, dressings cdi, stoma viable with brown liquid stool in bag, drain ss
Patient has a azul catheter: No
Patient has a central line: No
[2024-12-04] MEDS: TYLENOL 1000 MG PO ×2 (14:16→20:35)
[2024-12-04 15:20] VITALS: BP 122/64
[2024-12-04] MEDS: ULTRAM 50 MG PO (15:31)
[2024-12-04 17:02] LABS: Glucose - Point of Care 121 mg/dl (70-99)
[2024-12-04] MEDS: LOVENOX 40 MG SC (17:19)
[2024-12-04 23:23] VITALS: BP 116/77
[2024-12-04 23:37] LABS: Glucose - Point of Care 105 mg/dl (70-99)
[2024-12-05] MEDS: MELATONIN 5 MG PO ×2 (00:15→21:40)
[2024-12-05] MEDS: NOVOLOG FLEXPEN-LOW RESISTANCE SC (00:15)
[2024-12-05] MEDS: ZOSYN 50 IV ×4 (01:10→19:48)
[2024-12-05] MEDS: TYLENOL 1000 MG PO ×4 (01:11→19:49)
[2024-12-05] MEDS: TORADOL 15 MG IV (01:48)
[2024-12-05] MEDS: DILAUDID 0.5 MG IV (03:26)
[2024-12-05 05:37] VITALS: BMI 27.6
[2024-12-05 05:49] LABS: Blood Urea Nitrogen 15 mg/dl (9-20); Calcium 7.6 mg/dl (8.4-10.2); Carbon Dioxide 27 mmol/L (22-30); Chloride 104 mmol/L (98-107); Estimated Creatinine Clearance > 125 ml/min; Glucose 92 mg/dl (70-99); Magnesium 1.7 mg/dl (1.6-2.3); Phosphorus 3.1 mg/dl (2.5-4.5); Potassium 4.4 mmol/L (3.5-5.1); Sodium 135 mmol/L (135-145); eGFR > 60.00
[2024-12-05 07:33] LABS: Glucose - Point of Care 81 mg/dl (70-99)
[2024-12-05 08:00] VITALS: BP 127/76
[2024-12-05 08:05] VITALS: BP 127/76
[2024-12-05] MEDS: DESENEX/MITRAZOL/ZEASORB 1 APPLIC TOPICAL (08:54)
[2024-12-05] MEDS: PROTONIX IV 40 MG IV (08:54)
[2024-12-05] MEDS: NSS (PRESERVATIVE FREE) 10 ML IV (08:54)
--- NOTE | 2024-12-05 09:39 | W.PN.GS2 ---
Today's Communication / Plan
-
`
Assessment / Plan
-
Assessment: 49-year-old male with no significant past medical or surgical history who presented to our hospital on 11/25/2024 with a 2-day history of acute onset abdominal pain found to have intra-abdominal free fluid and free air.
POD #10 status post exploratory laparotomy, drainage of intra-abdominal abscess, and appendectomy without clear identification of the underlying source. No stomach or duodenal pathology. Small bowel without diverticula or enterotomy. Suspected a
sigmoid diverticula that perforated and potentially sealed off on its own. SHENG left in place during initial surgery subsequently demonstrated enteric contents and patient was taken back to the OR for management
POD #7 ex lap for abdominal washout with open sigmoidectomy for perforated diverticulitis, patient in discontinuity.
POD #5 s/p ex lap partial sigmoidectomy and end colostomy creation
AFVSS
doing well post op
Plan: LR diet as tolerated
-- Pain control: Tylenol, Toradol, Tramadol, oxy, IV Dilaudid PRN
-- Abx: Zosyn
-- DVT: Lovenox
-- PT eval and treat
-- Ostomy nurses following
Subjective Data
-
Date of Service: December 05, 2024
pt seen and examined
post op pain controlled
tolerating fulls
ostomy functioning
Objective Data
-
Intake and Output
12/04/24 12/05/24 12/06/24
06:59 06:59 06:59
Intake Total 2480 / 2480 1290 / 1290
Output Total 1575 / 1575 1380 / 1380
Balance 905 / 905 -90 / -90
Intake:
Oral fluids 480 / 480 940 / 940
IV piggybacks 200 / 200 200 / 200
TPN/PPN 1800 / 1800 150 / 150
Output:
Liquid stool amount 225 / 225 300 / 300
Colostomy 225 / 225 300 / 300
Drain Output (Total)
Left Abdomen Tereso-Crespo A
Urine, Voided 1300 / 1300 1050 / 1050
Vital Signs
Temp Pulse Resp BP Pulse Ox
97.3 F 82 16 127/76 96
12/05/24 08:00 12/05/24 08:00 12/05/24 08:00 12/05/24 08:00 12/05/24 08:00
Lab Results
12/04/24 04:03
12/05/24 05:09
Calcium 7.6 mg/dl (8.4-10.2) L 12/05/24 05:09
Phosphorus 3.1 mg/dl (2.5-4.5) 12/05/24 05:09
Magnesium 1.7 mg/dl (1.6-2.3) 12/05/24 05:09
Total Bilirubin 0.7 mg/dl (0.2-1.3) 12/02/24 05:48
Direct Bilirubin 0.8 mg/dl (0.0-0.4) H 11/30/24 05:33
AST 34 U/L (17-59) 12/02/24 05:48
ALT 24 U/L (0-50) 12/02/24 05:48
Alkaline Phosphatase 33 U/L (38-126) L 12/02/24 05:48
Total Protein 4.7 g/dl (6.3-8.2) L 12/02/24 05:48
Albumin 2.2 g/dl (3.5-5.0) L 12/02/24 05:48
Physical Exam
-
NAD AAOx3
ABD: soft, ND, mild TTP
incision with garry and gold
ostomy pink + liquid stool/air
[2024-12-05 11:47] LABS: Glucose - Point of Care 84 mg/dl (70-99)
[2024-12-05] MEDS: ROXICODONE 5 MG PO ×2 (13:43→19:50)
[2024-12-05 15:45] VITALS: BP 117/65
--- NOTE | 2024-12-05 15:49 | CM ---
Chart reviewed
[facility] to follow at discharge - ostomy,PT
Plan - home with [facility]
--- NOTE | 2024-12-05 16:57 | OR.RPT ---
Operative Report
Operative Report
Patient Name: Juan iVcente
: 1975
Date of Operation: 11/28/2024
Preoperative Diagnosis: Perforated viscus
Postoperative Diagnosis: Perforated diverticulitis (Hinchy 4)
Procedure(s):
1. Exploratory laparotomy
2. Open sigmoidectomy
3. Abdominal washout
Surgeon(s):
Dr. Dias
Investment Executive(s):
Ryan Guerrero MD (PGY 1)
Anesthesia: General
Estimated Blood Loss: 23 cc
Urine Output: See anesthesia record
Drains/Lines/Implants: 19 Gibraltarian round Luis drain
Specimens: Sigmoid colon
Indication for surgery:
This is a 49-year-old male who presented to our hospital on 11/25/2024 with concerns for a perforated viscus. He was taken emergently to the OR for exploration but no site was found. A drain was left which turned bilious on 11/28/2024 prompting us
to take him back to the OR for reexploration. This was not planned, but certainly not unexpected. Risks, benefits, alternatives were all reviewed with the patient and that he consented for surgery.
Operative Findings: Once again matted small bowel was identified however enteric contents were also noted. After exploration of the small bowel again no enterotomy was found however exploration of the sigmoid did identify a site of perforation. It
does appear as if there was a epiploic appendage over this area that probably sealed the colon off on his previous exploration. An open sigmoidectomy was performed. I did speak patient preoperatively and confirmed with his and
intraoperatively that he did not want stoma. Given the degree of contamination, I elected to leave him in discontinuity with plans for a takeback and colorectal anastomosis early next week after allowing time for the inflammation in his tissues to
subside. The proximal sigmoid colon was taken with 80 purple ROSA MARIA stapler and the distal end using a 60 TA blue load. A 19 Gibraltarian round drain was replaced and passed across the surgical field.
Details of the operation:
The patient was brought to the operating room and positioned supine on the operating table. General anesthesia was induced, followed by successful endotracheal intubation. A Soliman catheter and NG tube were placed. The abdomen was prepped and
draped in the usual fashion. His prior garry were removed and his prior PDS sutures were identified and cut. The abdomen was entered safely. We immediately encountered succus particularly in the left lower quadrant. This was traced to the
colon and a perforation in the sigmoid colon just below the pelvic brim was identified. The pelvis was thoroughly irrigated. Healthy section of bowel was identified just past the descending colon and a hole in the mesentery was made. The colon
was then divided using an 80 purple ROSA MARIA staple load. The sigmoid colon was then freed off of the lateral sidewall down to the rectum. The intervening mesentery was ligated using a bipolar energy device. Satisfied that we were past the
perforation, a TA 60 stapler was used sigmoid colon distally with a blue load. Specimen was passed off the field and inspected. It appeared as if an epiploic appendage had likely sealed off the previous perforation and was thus missed on his prior
exploration. The specimen was passed off the field. At this point, given the degree of contamination it was felt an anastomosis would likely leak. I did briefly discussed with the patient the possibility of a stoma preoperatively which she
greatly opposed. I confirmed this again in the operating room over the phone with his significant other. At this point, we elected to keep him in discontinuity with plans to bring him back to the OR in 2 days for a reexploration and possible
colorectal anastomosis. The abdomen was once again washed out and a fresh 19 Gibraltarian Luis drain was introduced through his prior drain site. This was secured at the skin with a 2-0 nylon suture. The fascia was then closed with running 0 PDS
suture anchored at each apex and run towards the middle and tied together. The skin was loosely approximated using skin stapler and covered with an Aquacel dressing. All counts were correct at the end of procedure. The patient tolerated the
procedure well. They were extubated and taken to the recovery area in good condition.
I was the attending physician and performed the procedure with assistance from the resident above. I was present for all portions of the case.
Jaskaran Dias MD
--- NOTE | 2024-12-05 17:10 | OR.RPT ---
Operative Report
Operative Report
Patient Name: Juan Vicente
: 1975
Date of Operation: 11/30/2024
Preoperative Diagnosis: Perforated diverticulitis
Postoperative Diagnosis: Same
Procedure(s):
1. Exploratory laparotomy (planned takeback)
2. Partial sigmoidectomy with end colostomy
Surgeon(s):
Dr. Dias
It Service Delivery Manager(s):
Placido Ervin MD
Anesthesia: General
Estimated Blood Loss: 27 cc
Urine Output: See anesthesia records
Drains/Lines/Implants: 19 Irish round Luis drain
Specimens: Sigmoid stone
Indication for surgery:
This is a 49-year-old male who presented to our hospital on 11/25/2024 with abdominal pain found to have a perforated viscus. Initial exploration did not immediately identify source but on 11/28/2024 his SHENG drain turned enteric concerning for an
ongoing enteric leakage from a GI source so he was taken back and found to have a perforated sigmoid diverticulitis. In conjunction with the patient's wishes he was left in discontinuity and with a plan for takeback today for reexploration and
possible colorectal anastomosis.
Operative Findings: Succus noted in the abdomen emanating from pinpoint hole along the staple line of the sigmoid stump, abdomen washed out. Rectal stump appeared healthy and viable. Given degree of continued contamination, we elected to perform
an end colostomy. The white line of Toldt was incised and the mesentery of the descending colon was medialized and divided to provide sufficient laxity to reach the abdominal wall. A left upper quadrant ostomy was created and the colon was pulled
through to the surface. A 19 Irish round drain was replaced into the abdomen after thoroughly irrigating with 2 L of warm saline. The abdomen was closed with running wound #1 Stratafix barbed suture. The skin was loosely closed with garry. A
healthy portion of the sigmoid colon was identified and transected. The remaining stump was passed off as specimen. The ostomy was then matured in a Irina like fashion though given how stiff the colon was from the surrounding inflammation this
was difficult to do and the ostomy was viable but fairly flush with the skin.
Details of the operation:
The patient was brought to the operating room and positioned supine on the operating table. General anesthesia was induced, followed by successful endotracheal intubation. A Soliman catheter was placed. The abdomen was prepped and draped in the
usual fashion. His prior garry were removed and his prior PDS sutures were identified and cut. The abdomen was entered safely. We immediately encountered succus particularly in the left lower quadrant. This was traced to the colon and a
perforation in the proximal staple line was identified. After controlling the perforation, the pelvis was thoroughly irrigated with 2 L of warm saline. Given the degree of continued inflammation and infection we elected not to perform an
anastomosis and instead mature and end colostomy. The rectal stump was red and flat and noted to be healthy. Long Prolene sutures were placed to facilitate identification in the future. The white line of Toldt was incised and the mesentery of the
descending colon was medialized and divided to provide sufficient laxity to reach the abdominal wall. A left upper quadrant ostomy was created and the colon was pulled through to the surface. Fresh 19 Irish round Luis drain was replaced into the
abdomen and secured at the skin with a 2-0 nylon suture. The abdomen was closed with running #1 strata fix barbed suture x2 anchored at each apex and overlapped in the middle before locking them. The skin was then loosely approximated with garry
and Betadine soaked gold were intermittently placed. The site was then covered with a towel while we began maturing our colostomy. The colon was resected to a level 2 to 3 cm above the skin and the corresponding blood supply was ligated at this
level with a tie. Though we had sufficient length, the ostomy was difficult to Irina as the tissues were still fairly inflamed and indurated. After placing an ostomy appliance, an Aquacel dressing was placed around the skin and a drain sponge
around the drain. All counts were correct at the end of procedure. The patient tolerated the procedure well. They were extubated and taken to the recovery area in good condition.
I was the attending physician and performed the procedure with the assistance of Dr. Linson is no other qualified casting assistant was available. He was critical in providing tension and counter tension as well as for helping provide exposure in this
challenging case. I was present for all portions of the procedure.
Jaskaran Dias MD
[2024-12-05] MEDS: LOVENOX 40 MG SC (17:47)
[2024-12-05 21:44] LABS: Glucose - Point of Care 94 mg/dl (70-99)
[2024-12-05 23:05] VITALS: BP 110/58
[2024-12-06] MEDS: TYLENOL 1000 MG PO ×3 (01:02→13:41)
[2024-12-06] MEDS: ZOSYN 50 IV ×2 (01:02→08:44)
[2024-12-06 06:00] VITALS: BMI 26.9
[2024-12-06 07:02] VITALS: BP 123/68
[2024-12-06 07:09] LABS: Glucose - Point of Care 88 mg/dl (70-99)
[2024-12-06] MEDS: FLUSH (NSS) 2 FLUSH IV (08:44)
--- NOTE | 2024-12-06 09:25 | W.PN.GS2 ---
Addendum entered and electronically signed by Adelso Reyes MD 12/06/24 09:45:
pt seen and examined with BLOOD BANK LABORATORY TECHNICIAN; nursing and [facility] nurse at bedside as well
offers no complaints, tolerating PO intake, feeling a bit better each day
AFVSS
ABD: soft, ND, incision with some drainage from open areas and surrounding tape excoraition but no purulence, no spreading erythema
incision cleaned well with saline and lightly packed with 4x4 gauze where gold were previously in place
A/P: continue LRD
WO ostomy teaching today
probable d/c home today with additional 5 day course of oral abx to complete 10days post op
Original Note:
Today's Communication / Plan
-
dispo planning
Assessment / Plan
-
Assessment: 49-year-old male with no significant past medical or surgical history who presented to our hospital on 11/25/2024 with a 2-day history of acute onset abdominal pain found to have intra-abdominal free fluid and free air.
POD #11 status post exploratory laparotomy, drainage of intra-abdominal abscess, and appendectomy without clear identification of the underlying source. No stomach or duodenal pathology. Small bowel without diverticula or enterotomy. Suspected a
sigmoid diverticula that perforated and potentially sealed off on its own. SHENG left in place during initial surgery subsequently demonstrated enteric contents and patient was taken back to the OR for management
POD #8 ex lap for abdominal washout with open sigmoidectomy for perforated diverticulitis, patient in discontinuity.
POD #6 s/p ex lap partial sigmoidectomy and end colostomy creation
AFVSS
doing well post op
Plan:
-- LR diet as tolerated
-- Pain control: Tylenol, Toradol, Tramadol, oxy PRN
-- Abx: Zosyn, will transition to PO abx on d/c for an additional 5 days
-- DVT ppx: Lovenox
-- PT evaluated, rec home health
-- Ostomy nurses following
Tentative d/c later today. Will remove PICC prior to d/c
Subjective Data
-
Date of Service: December 06, 2024
Patient seen and examined at bedside with Dr. Reyes and wound care team. Denies pain. No n/v. Tolerating diet.
Objective Data
-
Intake and Output
12/05/24 12/06/24 12/07/24
06:59 06:59 06:59
Intake Total 1290 / 1290 1400 / 1400 290 / 290
Output Total 1380 / 1380 [birth year] 575 / 575
Balance -90 / -90 -575 / -575 -285 / -285
Intake:
Oral fluids 940 / 940 1200 / 1200 240 / 240
IV piggybacks 200 / 200 200 / 200 50 / 50
TPN/PPN 150 / 150
Output:
Liquid stool amount 300 / 300 300 / 300 175 / 175
Colostomy 300 / 300 300 / 300 175 / 175
Drain Output (Total)
Left Abdomen Tereso-Crespo A
Urine, Voided 1050 / 1050 1675 / 1675 400 / 400
Other:
Number of approximated LARGE 1
amounts of urine
Vital Signs
Temp Pulse Resp BP Pulse Ox
98.4 F 77 16 123/68 96
12/06/24 07:02 12/06/24 07:02 12/06/24 07:02 12/06/24 07:02 12/06/24 07:02
Lab Results
12/04/24 04:03
12/05/24 05:09
Calcium 7.6 mg/dl (8.4-10.2) L 12/05/24 05:09
Phosphorus 3.1 mg/dl (2.5-4.5) 12/05/24 05:09
Magnesium 1.7 mg/dl (1.6-2.3) 12/05/24 05:09
Total Bilirubin 0.7 mg/dl (0.2-1.3) 12/02/24 05:48
Direct Bilirubin 0.8 mg/dl (0.0-0.4) H 11/30/24 05:33
AST 34 U/L (17-59) 12/02/24 05:48
ALT 24 U/L (0-50) 12/02/24 05:48
Alkaline Phosphatase 33 U/L (38-126) L 12/02/24 05:48
Total Protein 4.7 g/dl (6.3-8.2) L 12/02/24 05:48
Albumin 2.2 g/dl (3.5-5.0) L 12/02/24 05:48
Physical Exam
-
NAD AAOx3
ABD: soft, ND, NT
incision with garry, thick SSF present, no erythema, dermatitis secondary to moisture/tape around incision
ostomy pink + liquid stool/air
Patient has a azul catheter: No
Patient has a central line: Yes (PICC)
--- NOTE | 2024-12-06 10:41 | WOUNDNOTE ---
[facility] RN NOTE: Patient visited for pouch change and ostomy teaching with , Mallorie. Per RN, Nancy patient demonstrated ability to empty pouch today. Patient reports he felt confident with pouch emptying. Pouch change with Papillion convex barrier
#[id number] and pouch #[id number] and Eakins seal. Peristomal skin intact, but slightly red. No-sting barrier applied to peristomal skin. and patient asked appropriate questions. Midline incision cleaned and no-sting barrier applied to reddened area,
secured with silicone tape. 2 weeks of ostomy supplies and accessories sent home including paste, powder and belt. TT Val in CM regarding plan for possible discharge today.
[2024-12-06 11:05] VITALS: BP 138/82; PULSE 88; O2SAT 98
[2024-12-06 11:38] LABS: Glucose - Point of Care 89 mg/dl (70-99)
--- NOTE | 2024-12-06 12:57 | CM ---
Patient seen at bedside.
Per [facility] patient was given ostomy supplies
[facility]
PLAN: Home with [facility] when medically stable
--- NOTE | 2024-12-06 13:30 | W.DS.TRANS ---
Addendum entered and electronically signed by DORIAN Omalley 12/06/24 15:47:
dictated #[id number]
Original Note:
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
-
Discharge Instructions:
Discharge Diagnosis/Procedures Perforated diverticulitis. Exploratory
laparotomy, Merrill's procedure
Diet Regular
Activity No strenuous activity
Additional Activity Do not lift over 15lbs for 4-5 weeks
Driving Restrictions Wait until comfortable twisting/off narcotics
Bathing Restrictions OK to Shower
Wound Care Jez will be removed during your follow up
appointment 2-3 weeks after surgery. Keep your
incision clean and dry
Instructions: Quitting smoking for adults
Stand-Alone Forms:
Changes to Home Medications: No
Discharge Medications:
DC Medications w/original date entered in [facility]
acetaminophen 650 mg tablet,extended release 1,300 mg PO [id number] PRN MILD PAIN 11/25/24
amoxicillin 875 mg-potassium clavulanate 125 mg tablet 1 tab PO Q12 antibiotic #10 tabs 12/06/24
ibuprofen 200 mg tablet 400 - 600 mg (2 - 3 x 200 mg) PO Q6HPRN PRN moderate pain #1 tab 12/06/24
oxycodone 5 mg tablet 5 mg PO Q4HPRN PRN breakthrough/severe pain #12 tabs 12/06/24
Home Medication Changes
Pending Results: No
[2024-12-06] MEDS: AFLURIA (36 mos+) 2024-2025 FORMULA 0.5 ML IM (13:43)
[2024-12-06 15:05] VITALS: BP 102/60
== END 2024-12-06 16:05 | disposition home health service (06) | DRG 853 ==
LOC: 2 SOUTH 15:24
PROVIDERS: Registered Nurse; Student in an Organized Health Care Education/Training Program; Surgery; ADMITTING PHYSICIAN Surgery; EMERGENCY PHYSICIAN Emergency Medicine
PROC: 0W9G0ZZ Drainage of Peritoneal Cavity, Open Approach (ICD-10-PCS; 2024-11-25)
PROC: 0DTJ0ZZ Resection of Appendix, Open Approach (ICD-10-PCS; 2024-11-25)
PROC: 0DJD8ZZ Inspection of Lower Intestinal Tract, Via Natural or Artificial Opening Endoscopic (ICD-10-PCS; 2024-11-25)
PROC: 3E0436Z Introduction of Nutritional Substance into Central Vein, Percutaneous Approach (ICD-10-PCS; 2024-11-30)
PROC: 02HV33Z Insertion of Infusion Device into Superior Vena Cava, Percutaneous Approach (ICD-10-PCS; 2024-11-30)
PROC: 0D1N0Z4 Bypass Sigmoid Colon to Cutaneous, Open Approach (ICD-10-PCS; 2024-11-30)
PROC: 0DBN0ZZ Excision of Sigmoid Colon, Open Approach (ICD-10-PCS; 2024-11-30)
PROC: 3E02340 Introduction of Influenza Vaccine into Muscle, Percutaneous Approach (ICD-10-PCS; 2024-12-06)
DX: A41.9 Sepsis, unspecified organism (principal); K65.1 Peritoneal abscess; K57.20 Diverticulitis of large intestine with perforation and abscess without bleeding; K56.7 Ileus, unspecified; N17.9 Acute kidney failure, unspecified; F17.210 Nicotine dependence, cigarettes, uncomplicated; E86.1 Hypovolemia; M19.90 Unspecified osteoarthritis, unspecified site; Z23 Encounter for immunization
CPT/HCPCS: 88304; 88307; 71045; 74018; 74177; 74250; 80048; 80053; 81003; 81015; 82248; 82962; 83605; 83690; 83735; 84100; 84478; 85025; 85027; 86850; 86900; 86901; 87040; 87070; 87075; 87077; 87086; 87147; 87186; 87205; 90686; 93005; 96374; 96375; 97162; 97530; 99285; 99406; C1729; C1776; G0008; Q9967

== ENCOUNTER → 2025-01-01 13:37 | Outpatient (REF) | payer OTHER, SELFPAY | LOC: RAD 13:37 | PROVIDERS: ATTENDING PHYSICIAN Surgery | DX: K57.20 Diverticulitis of large intestine with perforation and abscess without bleeding (principal) | CPT/HCPCS: 74177; Q9967 ==

== ENCOUNTER 2025-01-28 16:29 | Day surgery (SDC) | payer OTHER, SELFPAY ==
[2025-01-28 13:35] VITALS: BMI 29.6
[2025-01-28 13:36] VITALS: BMI 29.6
[2025-01-28 13:37] VITALS: BP 163/97
--- NOTE | 2025-01-28 14:33 | HP.FOC2 ---
Focused History & Physical
Chief Complaint
HPI:
Chief Complaint: Screening colonoscopy
HPI / Indication for Planned Procedure: This is a 49-year-old male who presented to our hospital with a perforated viscus found to have perforated diverticulitis status post Merrill's procedure now here for screening colonoscopy in preparation of
possible reversal.
Relevant Past Medical History: Negative
Relevant Social History: Negative
Relevant Family History: Negative
Relevant Past Surgical History: Positive for (Open Merrill's)
Review of Systems
Review of Pertinent Systems: All Systems Negative
Medication
See Medication form for detailed medications: Yes
Medication List (including Herbals & OTC):
acetaminophen 650 mg tablet,extended release 1,300 mg PO [id number] PRN MILD PAIN 11/25/24
amoxicillin 875 mg-potassium clavulanate 125 mg tablet 1 tab PO Q12 antibiotic #10 tabs 12/06/24
ibuprofen 200 mg tablet 400 - 600 mg (2 - 3 x 200 mg) PO Q6HPRN PRN moderate pain #1 tab 12/06/24
oxycodone 5 mg tablet 5 mg PO Q4HPRN PRN breakthrough/severe pain #12 tabs 12/06/24
zinc oxide 5 % topical cream 1 applic topical .as needed #177.4 mL 12/18/24
Medications Reviewed: Yes
Allergies and Reactions
Patient has Allergies: Yes
Noted Allergies and Reactions:
Allergy/AdvReac Type Severity Reaction Status Date / Time
Penicillins Allergy as an Verified 11/25/24 15:06
infant,
tolerates
amoxicillin
Pertinent Physical Exam
All Other Systems: Negative
Head/Neck: Normal
Diagnosis / Assessment
This is a 49-year-old male with history of perforated diverticulitis status post open Merrill's procedure.
Plan / Procedure
Colonoscopy
Anesthesia/Sedation to be done by Anesthesia Provider: Yes
[2025-01-28 15:19] VITALS: BP 121/62
[2025-01-28 15:30] VITALS: BP 146/84
[2025-01-28 15:45] VITALS: BP 145/86
[2025-01-28] MEDS: ZOFRAN 4 MG IV (16:33)
[2025-01-28] MEDS: MOTRIN 400 MG PO (17:04)
== END 2025-01-28 18:00 | disposition home or self-care (01) ==
LOC: SDS 16:29
PROVIDERS: ATTENDING PHYSICIAN Surgery
DX: K57.32 Diverticulitis of large intestine without perforation or abscess without bleeding (principal); Z01.818 Encounter for other preprocedural examination
CPT/HCPCS: 45378

== ENCOUNTER 2025-04-17 09:51 | Inpatient (IN) | payer OTHER, SELFPAY ==
[2025-04-17] VITALS (9 sets, daily range): BP systolic 132–158; BP diastolic 76–93; BMI 29.4
[2025-04-17] MEDS: NORMOSOL-R/PLASMALYTE-A 1000 IV ×2 (10:21→17:41)
[2025-04-17] MEDS: NEURONTIN 300 MG PO ×2 (10:22→23:46)
[2025-04-17] MEDS: TYLENOL 1000 MG PO ×2 (10:22→23:46)
[2025-04-17] MEDS: ENTEREG 12 MG PO ×2 (10:22→20:30)
[2025-04-17] MEDS: HEPARIN 5000 UNITS SC (11:29)
--- NOTE | 2025-04-17 11:41 | HP.FOC2 ---
Focused History & Physical
Chief Complaint
HPI:
Chief Complaint: Colostomy
HPI / Indication for Planned Procedure: This is a 49-year-old male status post open Merrill's procedure for perforated diverticulitis here for a laparoscopic reversal.
Relevant Past Medical History: Negative
Relevant Social History: Negative
Relevant Family History: Negative
Relevant Past Surgical History: Positive for (Exploratory laparotomy, Merrill's procedure)
Review of Systems
Review of Pertinent Systems: All Systems Negative
Medication
See Medication form for detailed medications: Yes
Medication List (including Herbals & OTC):
acetaminophen 650 mg tablet,extended release 1,300 mg PO [id number] PRN MILD PAIN 11/25/24
ibuprofen 200 mg tablet 400 - 600 mg (2 - 3 x 200 mg) PO Q6HPRN PRN moderate pain #1 tab 12/06/24
Medications Reviewed: Yes
Allergies and Reactions
Patient has Allergies: Yes
Noted Allergies and Reactions:
Allergy/AdvReac Type Severity Reaction Status Date / Time
Penicillins Allergy as an Verified 04/17/25 09:57
infant,
tolerates
amoxicillin
Pertinent Physical Exam
All Other Systems: Negative
Head/Neck: Normal
Diagnosis / Assessment
This is a 49-year-old male status post open Merrill's procedure for perforated diverticulitis here for a laparoscopic reversal.
Plan / Procedure
This is a 49-year-old male status post open Merrill's procedure for perforated diverticulitis here for a laparoscopic reversal.
Anesthesia/Sedation to be done by Anesthesia Provider: Yes
--- NOTE | 2025-04-17 16:16 | W.IMMPOSTOP ---
Addendum entered and electronically signed by Jaskaran Dias MD 04/17/25 16:50:
To continue in 'operative findings':
His prior midline incision was reopened and the abdomen was entered safely. There was significant amount of adhesions which were lysed with both sharp and electrocautery dissection. We did review our 5 mm Optiview site as well as our Veress entry
sites to ensure no injury occurred here. Her lysis took roughly 95 minutes. There were a few serosal tears that were inherent to the nature of the dissection which were oversewn with 3-0 Vicryl pop-off's. The colostomy was taken down and trimmed
back about 4 cm to healthy viable descending colon. There were no residual diverticula in this portion of the colon. The white line of Toldt was incise and extended up the left colic gutter. It did appear that we had enough reach into the pelvis
so the splenic flexure was not disturbed. The prior Prolene sutures marking the rectal stump were identified and the rectal stump was dissected free. There was some adhesions from the surrounding pelvic sidewall as well as the bladder anteriorly
which were carefully dissected. There was some bleeding in the deep left pelvis that stopped with a single 3-0 Vicryl suture. Surgiflo was placed in the pelvis as well to ensure hemostasis. Dr. Reyes scrubbed in at this point to help with this
portion of the the case. An end to side colorectal anastomosis was then fashioned using 28 EEA stapler after flexible sigmoidoscopy and dilation with the EEA sizers. The anastomosis came out anteriorly on the rectal stump such that there were no
crossing staple lines. Interrupted 3-0 PDS sutures were then placed along the anterior portion of our anastomosis in a Lembert fashion. A flexible sigmoidoscopy was then performed as part of a leak test to confirm that our anastomosis was
airtight. The anastomotic rings appeared intact and hemostatic. Stool was noted proximal to our anastomosis. There was also a moderate amount of proctitis in the rectum. We did run the bowel 1 more time to ensure there was no inadvertent injury
to the viscera. Satisfied, the omentum was laid over anastomosis in the pelvis. The posterior fascia of the ostomy was closed with running 2-0 PDS suture. The anterior fascia was closed in a similar fashion. There was an additional port site
hernia from his prior surgery in the left lower quadrant that was closed with a 3-0 PDS suture. The midline was then approximated with 0 PDS suture anchored at each apex and run towards the middle and tied together. The skin was then closed with
interrupted 3-0 Vicryl sutures followed by garry and an Aquacel dressing. The left upper quadrant port site was closed with garry as was the Veress needle site. The ostomy site was closed with interrupted skin garry and Betadine soaked gold.
Original Note:
Surgical Immed Post Op Note
-
Primary Surgeon: Jaskaran Dias MD
Assisting Surgeon:
Adelso Reyes MD
SIGIFREDO Souza
Pre-op Diagnosis: Presence of colostomy
Post-op Diagnosis: Same
Procedure Performed:
1. Lysis of adhesions (95) mins
2. Laparoscopic to open Merrill's reversal (colostomy takedown, partial colectomy with colorectal anastomosis)
3. Flexible sigmoidoscopy
Anesthesia Type: General
Specimen / Cultures: Colostomy
Estimated Blood Loss: 23 cc
Complications: None
Operative Findings: Left subcostal Veress entry which required 2 passes and asymmetric distention of the abdominal wall noted. A right upper quadrant Optiview entry was performed, but we encountered dense intra-abdominal adhesions so the decision
was made quickly to convert to an open procedure. His prior midline incision was reopened
POST OP PLAN:
Imaging: None
Labs: Routine AM
Diet: N.p.o., NG tube to low intermittent wall suction, expect ileus. IV fluids
Analgesia: Tylenol 1 mg every 8h Donny, Toradol 10 mg every 6, gabapentin 300 twice daily, Dilaudid 0.5mg q2h PRN
Neuro/vascular checks: q4h
AC/AP: Hold Therapeutic AC, Lovenox 40 mg every afternoon starting 04/18
Activity: Ad Amelia
Wound/Incisions/Drains: Routine, Soliman likely out POD #1, gold out on POD 4
Abx: None
Dispo: RNF
[2025-04-17] MEDS: TORADOL 10 MG IV ×2 (16:55→22:00)
--- NOTE | 2025-04-17 17:54 | PTCARENOTE ---
Pt arrived to 2S in bed. Full assessment completed. NGT with a scant amount of brown drainage noted in tubing, LIS maintained. IVF infusing per order. Soliman catheter clean and intact draining chaim urine. Midline abdominal DSG with a scant amount of
drainage noted. Lap sites gauze with tegederm C/D/I. Pt instructed to ring for assistance with ambulation and NPO order, verbalized understanding. Bed locked and in the lowest position, safety maintained. Oriented to room and call acuna, family at
bedside.
[2025-04-18] MEDS: DILAUDID 0.5 MG IV ×5 (00:40→21:20)
[2025-04-18 03:15] VITALS: BP 135/83
[2025-04-18] MEDS: TORADOL 10 MG IV (05:13)
[2025-04-18 07:12] VITALS: BP 150/85
[2025-04-18] MEDS: NORMOSOL-R/PLASMALYTE-A 1000 IV ×2 (07:19→18:07)
[2025-04-18] MEDS: NEURONTIN 300 MG PO ×3 (07:37→21:19)
[2025-04-18] MEDS: TYLENOL 1000 MG PO ×2 (07:38→18:04)
[2025-04-18] MEDS: ENTEREG 12 MG PO ×2 (07:38→21:22)
[2025-04-18] MEDS: PROTONIX IV 40 MG IV ×2 (07:38→21:21)
[2025-04-18 08:05] LABS: % Basophils 0.2 % (0-2); % Immature Granulocytes 0.4 % (0-0.5); % Lymphocytes 15.9 % (20.5-51.1); % Monocytes 8.7 % (1.7-9.3); % Neutrophils 74.8 % (42.2-75.2); Absolute Lymphocytes 1.8 10^3/uL (1.2-3.4); Absolute Neutrophils 8.5 10^3/uL (1.4-6.5); Hematocrit 45.2 % (39.0-52.0); Mean Corp Hgb Conc. 35.4 g/dL (33.0-37.0); Mean Corpuscular Hgb 30.5 pg (27.0-31.0); Mean Corpuscular Volume 86.1 fL (80.0-94.0); Mean Platelet Volume 9.4 fL (7.4-10.4); Nucleated Red Blood Cells % 0 % (-); Platelet Count 244 10^3/uL (130-400); Red Blood Cell Count 5.25 10^6/uL (4.70-6.10); Red Cell Dist. Width 12.1 % (11.5-14.5); White Blood Cell Count 11.3 10^3/uL (4.8-10.8)
[2025-04-18 08:52] LABS: Blood Urea Nitrogen 17 mg/dl (9-20); Calcium 8.7 mg/dl (8.4-10.2); Carbon Dioxide 26 mmol/L (22-30); Chloride 110 mmol/L (98-107); Estimated Creatinine Clearance > 125 ml/min; Glucose 103 mg/dl (70-99); Sodium 144 mmol/L (135-145); eGFR > 60.00
--- NOTE | 2025-04-18 09:31 | W.PN.GS2 ---
Addendum entered and electronically signed by Jaskaran Dias MD 04/18/25 10:55:
I saw and examined the patient independently.
The Graphic Illustrator's note was reviewed and I agree with the note, assessment and plan except where noted below.
Comment: This is a 49-year-old male postoperative day 1 from a laparoscopic to open Merrill's reversal procedure (colostomy takedown, extensive lysis of adhesions and colorectal anastomosis). Doing well, expected postoperative course.
Azul out today.
NG tube output a little bit on the bloodier side, PPI ordered. Continue low intermittent wall suction.
Will hold Toradol. H&H okay.
Continue Entereg
Pain control
Continue trending labs
Awaiting return of bowel function, expect prolonged ileus given the extent of dissection.
Ania out and midline dressing off postoperative day 4
Out of bed and ambulate. I-S.
Original Note:
Today's Communication / Plan
-
NPO/NGT
Assessment / Plan
-
49 yo male with a h/o perforated diverticulitis s/p Pato's procedure
POD #1 Colostomy takedown with partial colectomy and BREEZY
AFVSS
Labs stable, mild reactive leukocytosis
Await bowel recovery
--C/W NPO/NGT to LIWS
--C/W IVF
--Follow labs
--PPI IV BID
--Hold NSAID given blood tinged NGT outputs
--Analgesics prn and scheduled
--Remove azul for voiding trial
--Lovenox and SCDs for VTE ppx
Subjective Data
-
Date of Service: April 18, 2025
Patient seen and examined at bedside with Dr. Dias. Denies n/v. Some belching but no passage of flatus. Pain at incision.
Objective Data
-
Intake and Output
04/17/25 04/18/25 04/19/25
06:59 06:59 06:59
Intake Total 0 / 0 900 / 900
Output Total 1000 / 1000 500 / 500
Balance -1000 / -1000 400 / 400
Intake:
IV fluids (Total) 900 / 900
Amount instilled into GI Tube ( 0 / 0
Total)
[place] Sump 0 / 0
Output:
Gastrointestinal tube output ( 825 / 825
Total)
[place] Sump 825 / 825
Urine, Azul 175 / 175 500 / 500
Vital Signs
Temp Pulse Resp BP Pulse Ox
98.8 F 96 16 150/85 93
04/18/25 07:12 04/18/25 07:12 04/18/25 07:12 04/18/25 07:12 04/18/25 07:12
Lab Results
04/18/25 07:10
04/18/25 07:10
Calcium 8.7 mg/dl (8.4-10.2) 04/18/25 07:10
Physical Exam
-
NAD, Ox3
ABD soft, nd, mild tenderness. NGT with blood tinged drainage
Midline incision with intact dressing/abd binder
Patient has a azul catheter: Yes
--- NOTE | 2025-04-18 10:56 | OR.RPT ---
Operative Report
Operative Report
Patient Name: Juan Vicente
: 1975
Date of Operation: 04/17/2025
Preoperative Diagnosis: Presence of colostomy
Postoperative Diagnosis: Same
Procedure(s):
1. Laparoscopic to open Merrill's reversal (colostomy takedown, partial colectomy with colorectal anastomosis)
2. Extensive lysis of adhesions (95 minutes)
3. Flexible sigmoidoscopy
Surgeon(s):
Jaskaran Dias MD
Health Care Marketing Manager(s):
Adelso Reyes MD
SIGIFREDO Souza
CONNOR Downey
Anesthesia: General
Estimated Blood Loss: 23 cc
Urine Output: See anesthesia records
Drains/Lines/Implants: None
Specimens: Colostomy
Indication for surgery:
This is a 49-year-old male who presented to our hospital several months ago with abdominal pain and found to have bowel perforation, eventually undergoing an open Pato's procedure. He underwent a screening colonoscopy to confirm no other
concurrent pathology and after delaying surgery for several months he elected to move forward with colostomy reversal.
Operative Findings: Left subcostal Veress entry which required 2 passes and asymmetric distention of the abdominal wall noted. A right upper quadrant Optiview entry was performed, but we encountered dense intra-abdominal adhesions so the decision
was made quickly to convert to an open procedure. His prior midline incision was reopened and the abdomen was entered safely. There was significant amount of adhesions which were lysed with both sharp and electrocautery dissection. We did review
our 5 mm Optiview site as well as our Veress entry sites to ensure no injury occurred here. Her lysis took roughly 95 minutes. There were a few serosal tears that were inherent to the nature of the dissection which were oversewn with 3-0 Vicryl
pop-off's. The colostomy was taken down and trimmed back about 4 cm to healthy viable descending colon. There were no residual diverticula in this portion of the colon. The white line of Toldt was incise and extended up the left colic gutter. It
did appear that we had enough reach into the pelvis so the splenic flexure was not disturbed. The prior Prolene sutures marking the rectal stump were identified and the rectal stump was dissected free. There was some adhesions from the surrounding
pelvic sidewall as well as the bladder anteriorly which were carefully dissected. There was some bleeding in the deep left pelvis that stopped with a single 3-0 Vicryl suture. Surgiflo was placed in the pelvis as well to ensure hemostasis.
Eric scrubbed in at this point to help with this portion of the the case. An end to side colorectal anastomosis was then fashioned using 28 EEA stapler after flexible sigmoidoscopy and dilation with the EEA sizers. The anastomosis came out
anteriorly on the rectal stump such that there were no crossing staple lines. Interrupted 3-0 PDS sutures were then placed along the anterior portion of our anastomosis in a Lembert fashion. A flexible sigmoidoscopy was then performed as part of a
leak test to confirm that our anastomosis was airtight. The anastomotic rings appeared intact and hemostatic. Stool was noted proximal to our anastomosis. There was also a moderate amount of proctitis in the rectum. We did run the bowel 1 more
time to ensure there was no inadvertent injury to the viscera. Satisfied, the omentum was laid over anastomosis in the pelvis. The posterior fascia of the ostomy was closed with running 2-0 PDS suture. The anterior fascia was closed in a similar
fashion. There was an additional port site hernia from his prior surgery in the left lower quadrant that was closed with a 3-0 PDS suture. The midline was then approximated with 0 PDS suture anchored at each apex and run towards the middle and
tied together. The skin was then closed with interrupted 3-0 Vicryl sutures followed by garry and an Aquacel dressing. The left upper quadrant port site was closed with garry as was the Veress needle site. The ostomy site was closed with
interrupted skin garry and Betadine soaked gold.
Details of the operation:
The patient was brought to the operating room and positioned in the dorsal lithotomy position on the operating room table with the arms tucked. General anesthesia was induced, followed by successful endotracheal intubation. An OG and a Soliman
catheter were placed. His colostomy was closed with running 0 silk suture. The abdomen was prepped and draped in the usual fashion and a team timeout was performed. We began by obtaining abdominal access through a left subcostal Veress needle
which required 2 passes. Our initial antoinette in the skin bled significantly which we increased in size and cauterized. The abdomen distended asymmetrically while pneumoperitoneum was being established which was concerning for a significant amount of
scar tissue. We attempted to gain access through a right upper quadrant Optiview entry however we were met with significant amount of adhesions so we decided to complete his colostomy reversal through an open approach. His prior midline incision
was reincised and extended both cephalad and caudally. The abdomen was entered safely. There was a significant amount of adhesions throughout the abdomen, particularly in the left lower quadrant and pelvis. The small bowel was tediously freed up
from the left lateral and pelvic sidewalls. There is also significant amount of omentum tethered in various parts of the abdomen that were also freed up. The rectal stump with a long Prolene sutures from his prior surgery was identified. There
were adhesions from the bladder over the rectum as well which were freed up. There was also omentum plastered over our descending colostomy which was carefully from the descending colon mesentery without underlying injury to the bowel or
blood supply. There were a few serosal tears of the small bowel which were inherent to the nature of the dissection, these were oversewn with 3-0 Vicryl pop-off's. The lysis took roughly 95 minutes. Due to the extensive nature of the dissection I
did have the anesthesiologist switch his OG tube to an NG tube as I anticipated a prolonged postoperative ileus. I confirmed this by manual palpation of the stomach to be in good position. We then turned our attention to the ostomy itself which
was freed up from the surrounding skin and subcutaneous tissues and placed back into the abdomen after freeing it from the surrounding fascia. The colostomy tissue was a little bit ratty so was trimmed back about 4 cm to healthy viable descending
colon. With the colon now on stretch we are able to further mobilize the descending colon by incising the white line of Toldt. There was no additional diverticular disease noted in the descending colon and there appeared to be sufficient reach
into the pelvis without further division of the mesentery. There was good pulsatile blood flow noted in the marginal at the level of our dissection. At this point of the operation Dr. Reyes scrubbed in to assist with the final mobilization of
the rectum and performing our anastomosis. The rectum was freed up from the pelvic sidewalls and put on stretch. We also confirmed that we were around true rectum and there was no residual colon left behind distally. The staple line from the
descending colon was excised and the 28 EEA anvil was placed into the lumen and secured in place with a 3-0 Prolene pursestring suture. Satisfied that we would be able to make an anastomosis between 2 healthy pieces of bowel with good blood supply
without tension I scrubbed out to do the inferior portion of the anastomosis. After having difficulty passing the initial dilators up into the rectum I used the flexible sigmoidoscopy to help straighten the rectum and better visualize the path. We
were then able to successfully dilate the anus and rectum up to the necessary size all the way to the stump. The 28 EEA stapler was then passed up to the stump. It appeared that from the angle of the stapler and the anterior proctotomy would be
necessary which would also avoid any crossing staple lines. The spike was deployed and the anvil was to it and a end to side colorectal anastomosis was created. This was done without any issues and the anastomotic rings appeared intact.
The anterior portion of the anastomosis was then Lemberted using interrupted 3-0 PDS suture. The pelvis was flooded with saline and flexible sigmoidoscopy/leak test was performed and confirmed to be airtight. The anastomotic rings looked intact
and hemostatic. There was some moderate amount of proctitis distally. There was also some stool noted proximally past our anastomosis. Satisfied, I scrubbed back in and Dr. Reyes scrubbed out of the procedure. I did note some bleeding along
the left pelvic sidewall which a controlled with an interrupted 3-0 Vicryl pop. To ensure hemostasis, Surgiflo was applied along the pelvic sidewall with good effect. We then ran the bowel 1 more time to confirm no other injuries had been missed,
there was an additional small serosal tear that was oversewn with a 3-0 Vicryl pop. I also reconfirmed that there had been no injury from our Veress and Optiview entries. The omentum was draped down into the pelvis overlying the anastomosis.
The prior colostomy opening was then closed in 2 layers with 2-0 PDS suture 1 for the anterior and 1 for the posterior fascia. There is also an additional port site hernia noted from his prior surgery in the left lower quadrant that was closed with
a 3-0 PDS [id number] suture. A soft count was performed and confirmed to be correct. We then performed bilateral padmini blocks. The midline was then approximated using 0 PDS suture anchored at each apex and run towards the middle. The
subcutaneous tissues of the midline and colostomy site were rinsed with warm saline. We then closed the midline with interrupted 3-0 Vicryl sutures followed by skin garry. The port site and veress site were also was closed with skin garry.
The ostomy site was loosely closed with skin garry and packed with Betadine gauze. A midline Aquacel dressing was placed. All counts were correct at the end of procedure. The patient tolerated the procedure well. They were extubated and taken to
the recovery area hemodynamically stable with plans to be admitted to the hospital for further recovery. Counts were again correct x 2.
I was the attending physician and performed the procedure with assistance of the SIGIFREDO and Dr. Reyes. The assistance of SIGIFREDO Souza was required due to the complexity of the procedure. During the procedure Jeny assisted with retraction,
resection, and closure of the wound. Dr. Reyes was instrumental in assisting with dissection of the rectum and formation of the anastomosis as no other qualified [employer] assistant manager was present. I was present for all portions of the case.
Jaskaran Dias MD
[2025-04-18 11:05] VITALS: BP 145/80
--- NOTE | 2025-04-18 11:26 | CM ---
Patient seen at bedside on . Patient stated that he lives with his son and and has no PCP. Patient uses the [facility] in [place] for pharmacy needs. Patient s/p surgery and has NG tube. Patient plan is for discharge home with no needs. CM
will continue to follow for discharge planning needs.
Plan; home with VN; watch for possible SNF; patient plan is for home with no needs
[2025-04-18 15:03] VITALS: BP 157/93
[2025-04-18] MEDS: LOVENOX 40 MG SC (18:04)
[2025-04-18] MEDS: NSS (PRESERVATIVE FREE) 10 ML IV (21:21)
[2025-04-18 23:17] VITALS: BP 165/88
[2025-04-19] MEDS: TYLENOL 1000 MG PO ×3 (00:38→16:00)
[2025-04-19] MEDS: DILAUDID 0.25 MG IV ×2 (00:39→21:25)
[2025-04-19] MEDS: ZOFRAN 4 MG IV (06:25)
[2025-04-19 07:00] VITALS: BP 156/91
[2025-04-19] MEDS: NORMOSOL-R/PLASMALYTE-A 1000 IV ×2 (07:39→20:33)
--- NOTE | 2025-04-19 07:41 | PTCARENOTE ---
Pt insist on ice chips throughout shift r/t thirst and hunger, educated on limiting amount of PO oral intake to get true output from NG tube.
--- NOTE | 2025-04-19 08:51 | W.PN.GS2 ---
Today's Communication / Plan
-
~
Assessment / Plan
-
Assessment: 49 yo male with a h/o perforated diverticulitis s/p Pato's procedure
POD #2 Colostomy takedown with partial colectomy and BREEZY
AFVSS
A.m. labs pending
Attempted to family service counselor patient regarding typical postoperative recovery from this procedure and importance of allowing GI recovery as well as rationale for NG tube placement
Plan: Given patient report of passing flatus regularly and consuming large quantities of ice chips will initiate clamping trial with NG tube and monitor residuals
If NG tube residuals minimal and tolerates clamping will remove for patient comfort but advised to go slow with initiating diet
--C/W IVF
--PPI IV BID
--Hold NSAID given blood tinged NGT outputs
--Analgesics prn and scheduled
--Lovenox and SCDs for VTE ppx
Subjective Data
-
Date of Service: April 19, 2025
Patient seen and examined.
Adamant regarding removal of NG tube MERY states he can no longer tolerate it
States he is consuming a lot of ice chips
Reports significant difficulty sleeping and requesting sleeping aid
Incisional pain controlled
Reports passage of flatus regularly this a.m.
No bowel movement
Objective Data
-
Intake and Output
04/18/25 04/19/25 04/20/25
06:59 06:59 06:59
Intake Total 0 / 0 3350 / 3350
Output Total 1000 / 1000 2900 / 2900
Balance -1000 / -1000 450 / 450
Intake:
Oral fluids 640 / 640
IV fluids (Total) 2710 / 2710
Amount instilled into GI Tube ( 0 / 0
Total)
[place] Sump 0 / 0
Output:
Gastrointestinal tube output ( 825 / 825 1275 / 1275
Total)
[place] Sump 825 / 825 1275 / 1275
Urine, Soliman 175 / 175 650 / 650
Urine, Voided 975 / 975
Vital Signs
Temp Pulse Resp BP Pulse Ox
98.8 F 90 18 156/91 95
04/19/25 07:00 04/19/25 07:00 04/19/25 07:00 04/19/25 07:00 04/19/25 07:00
Calcium 8.7 mg/dl (8.4-10.2) 04/18/25 07:10
Physical Exam
-
NAD AAO x 3
ABD: Softly distended, mild generalized tenderness with some voluntary guarding due to incision.
Incision sites with dressings in place. No excessive drainage or saturation.
[2025-04-19 09:13] LABS: % Basophils 0.4 % (0-2); % Eosinophils 0.2 % (0-6); % Immature Granulocytes 0.4 % (0-0.5); % Monocytes 6.7 % (1.7-9.3); % Neutrophils 74.3 % (42.2-75.2); Absolute Lymphocytes 1.5 10^3/uL (1.2-3.4); Absolute Monocytes 0.6 10^3/uL (0.1-0.6); Absolute Neutrophils 6.3 10^3/uL (1.4-6.5); Hematocrit 42.9 % (39.0-52.0); Hemoglobin 15.2 g/dL (13.0-18.0); Mean Corp Hgb Conc. 35.4 g/dL (33.0-37.0); Mean Corpuscular Hgb 30.9 pg (27.0-31.0); Mean Corpuscular Volume 87.2 fL (80.0-94.0); Mean Platelet Volume 9.5 fL (7.4-10.4); Nucleated Red Blood Cells % 0 % (-); Platelet Count 225 10^3/uL (130-400); Red Blood Cell Count 4.92 10^6/uL (4.70-6.10); White Blood Cell Count 8.5 10^3/uL (4.8-10.8)
[2025-04-19] MEDS: NSS (PRESERVATIVE FREE) 10 ML IV ×2 (09:25→20:33)
[2025-04-19] MEDS: ENTEREG 12 MG PO ×2 (09:25→20:33)
[2025-04-19] MEDS: PROTONIX IV 40 MG IV ×2 (09:26→20:33)
[2025-04-19 09:27] LABS: Blood Urea Nitrogen 17 mg/dl (9-20); Calcium 8.6 mg/dl (8.4-10.2); Carbon Dioxide 27 mmol/L (22-30); Chloride 110 mmol/L (98-107); Estimated Creatinine Clearance > 125 ml/min; Glucose 99 mg/dl (70-99); Potassium 3.9 mmol/L (3.5-5.1); Sodium 144 mmol/L (135-145); eGFR > 60.00
[2025-04-19] MEDS: DILAUDID 0.5 MG IV ×2 (09:35→16:01)
[2025-04-19] MEDS: NEURONTIN PO (10:31)
[2025-04-19 15:00] VITALS: BP 157/88
[2025-04-19] MEDS: LOVENOX 40 MG SC (16:00)
[2025-04-19] MEDS: AMBIEN 5 MG PO (21:25)
[2025-04-19 23:06] VITALS: BP 142/85
[2025-04-20] MEDS: TYLENOL 1000 MG PO ×3 (01:02→17:04)
[2025-04-20] MEDS: DILAUDID 0.25 MG IV ×2 (01:03→14:43)
[2025-04-20 06:12] LABS: % Basophils 0.3 % (0-2); % Eosinophils 1.7 % (0-6); % Immature Granulocytes 0.5 % (0-0.5); % Lymphocytes 31.7 % (20.5-51.1); % Monocytes 6.2 % (1.7-9.3); % Neutrophils 59.6 % (42.2-75.2); Absolute Eosinophils 0.1 10^3/uL (0-0.7); Absolute Lymphocytes 2.4 10^3/uL (1.2-3.4); Absolute Monocytes 0.5 10^3/uL (0.1-0.6); Absolute Neutrophils 4.5 10^3/uL (1.4-6.5); Hematocrit 40.9 % (39.0-52.0); Hemoglobin 14.6 g/dL (13.0-18.0); Mean Corp Hgb Conc. 35.7 g/dL (33.0-37.0); Mean Corpuscular Hgb 31.2 pg (27.0-31.0); Mean Corpuscular Volume 87.4 fL (80.0-94.0); Mean Platelet Volume 9.8 fL (7.4-10.4); Nucleated Red Blood Cells % 0 % (-); Platelet Count 198 10^3/uL (130-400); Red Blood Cell Count 4.68 10^6/uL (4.70-6.10); White Blood Cell Count 7.6 10^3/uL (4.8-10.8)
[2025-04-20 06:35] LABS: Blood Urea Nitrogen 17 mg/dl (9-20); Calcium 8.5 mg/dl (8.4-10.2); Carbon Dioxide 24 mmol/L (22-30); Chloride 108 mmol/L (98-107); Estimated Creatinine Clearance > 125 ml/min; Glucose 74 mg/dl (70-99); Sodium 143 mmol/L (135-145); eGFR > 60.00
[2025-04-20 06:58] VITALS: BP 154/84
[2025-04-20] MEDS: PROTONIX IV 40 MG IV ×2 (07:58→20:25)
[2025-04-20] MEDS: NSS (PRESERVATIVE FREE) 10 ML IV ×2 (07:58→20:25)
[2025-04-20] MEDS: ENTEREG 12 MG PO ×2 (07:59→20:25)
--- NOTE | 2025-04-20 08:28 | W.PN.GS2 ---
Today's Communication / Plan
-
Trial of clears
Assessment / Plan
-
Assessment: 49 yo male with a h/o perforated diverticulitis s/p Pato's procedure
POD #3 Colostomy takedown with partial colectomy and BREEZY
AFVSS
Labs stable
NGT out on 04/19, tolerating sips
Plan:
--Trial of clears
--D/C IVF once tolerating clears
--PPI IV BID
--Hold NSAID given blood tinged NGT outputs
--Analgesics prn and scheduled
--OOB ambulate/IS while awake
--Lovenox and SCDs for VTE ppx
Subjective Data
-
Date of Service: April 20, 2025
Patient seen and examined at bedside with Dr. Reyes. Denies n/v. Passing a good amount of flatus, no bm as of yet. Minimal discomfort. slept a little better last night
Objective Data
-
Intake and Output
04/19/25 04/20/25 04/21/25
06:59 06:59 06:59
Intake Total 3350 / 3350 960 / 960
Output Total 2900 / 2900 900 / 900
Balance 450 / 450 60 / 60
Intake:
Oral fluids 640 / 640 960 / 960
IV fluids (Total) 2710 / 2710
Output:
Gastrointestinal tube output ( 1275 / 1275
Total)
[place] Sump 1275 / 1275
Urine, Azul 650 / 650
Urine, Voided 975 / 975 900 / 900
Vital Signs
Temp Pulse Resp BP Pulse Ox
98.4 F 73 16 154/84 95
04/20/25 06:58 04/20/25 06:58 04/20/25 06:58 04/20/25 06:58 04/20/25 06:58
Lab Results
04/20/25 04:29
04/20/25 04:29
Calcium 8.5 mg/dl (8.4-10.2) 04/20/25 04:29
Physical Exam
-
NAD AAO x 3
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
Incision sites with dressings in place. No excessive drainage or saturation.
Patient has a azul catheter: No
Patient has a central line: No
[2025-04-20] MEDS: NORMOSOL-R/PLASMALYTE-A 1000 IV (10:41)
[2025-04-20 15:55] VITALS: BP 175/79
[2025-04-20] MEDS: LOVENOX 40 MG SC (17:04)
[2025-04-20] MEDS: DILAUDID 0.5 MG IV (21:39)
[2025-04-20] MEDS: AMBIEN 5 MG PO (21:40)
[2025-04-20 23:00] VITALS: BP 138/72
[2025-04-21] MEDS: TYLENOL 1000 MG PO ×4 (00:19→23:13)
[2025-04-21 08:01] VITALS: BP 159/87
[2025-04-21 08:02] LABS: % Basophils 0.3 % (0-2); % Eosinophils 2.8 % (0-6); % Immature Granulocytes 0.2 % (0-0.5); % Lymphocytes 26.3 % (20.5-51.1); % Monocytes 5.4 % (1.7-9.3); Absolute Eosinophils 0.2 10^3/uL (0-0.7); Absolute Lymphocytes 1.5 10^3/uL (1.2-3.4); Absolute Monocytes 0.3 10^3/uL (0.1-0.6); Absolute Neutrophils 3.7 10^3/uL (1.4-6.5); Hematocrit 41.7 % (39.0-52.0); Mean Corpuscular Hgb 30.9 pg (27.0-31.0); Mean Platelet Volume 9.6 fL (7.4-10.4); Nucleated Red Blood Cells % 0 % (-); Platelet Count 227 10^3/uL (130-400); Red Blood Cell Count 4.85 10^6/uL (4.70-6.10); Red Cell Dist. Width 11.9 % (11.5-14.5); White Blood Cell Count 5.7 10^3/uL (4.8-10.8)
[2025-04-21] MEDS: ENTEREG 12 MG PO ×2 (08:25→20:48)
[2025-04-21] MEDS: NSS (PRESERVATIVE FREE) 10 ML IV ×2 (08:26→20:48)
[2025-04-21] MEDS: PROTONIX IV 40 MG IV ×2 (08:26→20:48)
[2025-04-21 08:36] LABS: Blood Urea Nitrogen 10 mg/dl (9-20); Calcium 8.9 mg/dl (8.4-10.2); Carbon Dioxide 29 mmol/L (22-30); Chloride 107 mmol/L (98-107); Estimated Creatinine Clearance > 125 ml/min; Glucose 109 mg/dl (70-99); Sodium 143 mmol/L (135-145); eGFR > 60.00
--- NOTE | 2025-04-21 09:17 | W.PN.GS2 ---
Today's Communication / Plan
-
Low residue diet
Assessment / Plan
-
Assessment: 49 yo male with a h/o perforated diverticulitis s/p Pato's procedure
POD #4 Colostomy takedown with partial colectomy and BREEZY
AFVSS
Labs stable
NGT out on 04/19, tolerating sips
Plan:
Low residue diet
Resume Toradol
Continue PPI, pain control.
Lovenox.
Out of bed and ambulate
Anticipate discharge home tomorrow, will remove dressings and gold prior to discharge.
Time Spent
Total Time Spent with Patient (in minutes): 20
Subjective Data
-
Date of Service: April 21, 2025
Interval Events:
No acute events overnight. Slept well. Pain Controlled. Denies Nausea/Vomiting, +bowel function. Tolerating diet.
Objective Data
-
Intake and Output
04/20/25 04/21/25 04/22/25
06:59 06:59 06:59
Intake Total 960 / 960 480 / 480
Output Total 900 / 900
Balance 60 / 60 480 / 480
Intake:
Oral fluids 960 / 960 480 / 480
Output:
Urine, Voided 900 / 900
Other:
Number of approximated MODERATE 2
amounts of urine
Vital Signs
Temp Pulse Resp BP Pulse Ox
98.3 F 71 16 159/87 94
04/21/25 08:01 04/21/25 08:01 04/21/25 08:01 04/21/25 08:01 04/21/25 08:01
Lab Results
04/21/25 07:21
04/21/25 07:21
Calcium 8.9 mg/dl (8.4-10.2) 04/21/25 07:21
Physical Exam
-
GENERAL/NEURO: Awake, Alert, no distress
CHEST: Unlabored breathing on RA
ABDOMEN: Soft, Non-Tender, Non-Distended, dressings in place
Patient has a azul catheter: No
Patient has a central line: No
--- NOTE | 2025-04-21 10:00 | CM ---
CM reviewed medical records. Patient remain acutely ill. CM will continue to follow for needs.
PLAN: home no needs noted.
[2025-04-21] MEDS: DILAUDID 0.25 MG IV ×2 (12:50→20:49)
[2025-04-21 15:08] VITALS: BP 140/87
[2025-04-21] MEDS: LOVENOX 40 MG SC (18:12)
[2025-04-21] MEDS: AMBIEN 5 MG PO (20:49)
[2025-04-21 23:00] VITALS: BP 135/65
[2025-04-22 07:49] VITALS: BP 149/91
[2025-04-22] MEDS: TYLENOL 1000 MG PO (08:27)
[2025-04-22] MEDS: ENTEREG 12 MG PO (08:27)
[2025-04-22] MEDS: NSS (PRESERVATIVE FREE) 10 ML IV (08:28)
[2025-04-22] MEDS: PROTONIX IV 40 MG IV (08:28)
[2025-04-22] MEDS: FLUSH (NSS) 2 FLUSH IV (08:28)
--- NOTE | 2025-04-22 10:33 | CM ---
Reviewed the chart notes and spoke with the patient at the bedside. Patient anticipates being discharged to home today. Patient's spouse to provide transportation. CM continues to be available to patient/family and is monitoring medical plan for
needs at discharge.
Plan: Discharge to home today. No additional needs anticipated at this time.
--- NOTE | 2025-04-22 10:43 | W.PN.GS2 ---
Today's Communication / Plan
-
DC home today
Assessment / Plan
-
Assessment: 49 yo male with a h/o perforated diverticulitis s/p Pato's procedure
POD #5 Colostomy takedown with partial colectomy and BREEZY
AFVSS
Labs stable
NGT out on 04/19, tolerating sips
Plan:
Dispo plan
Subjective Data
-
Date of Service: April 22, 2025
Interval Events:
No acute events overnight. Slept well. Pain Controlled. Denies Nausea/Vomiting, +bowel function. Tolerating diet.
Objective Data
-
Intake and Output
04/21/25 04/22/25 04/23/25
06:59 06:59 06:59
Intake Total 480 / 480 480 / 480
Balance 480 / 480 480 / 480
Intake:
Oral fluids 480 / 480 480 / 480
Other:
Number of approximated MODERATE 2 1
amounts of urine
Vital Signs
Temp Pulse Resp BP Pulse Ox
98.0 F 68 16 149/91 93
04/22/25 07:49 04/22/25 07:49 04/22/25 07:49 04/22/25 07:49 04/22/25 07:49
Lab Results
04/21/25 07:21
04/21/25 07:21
Calcium 8.9 mg/dl (8.4-10.2) 04/21/25 07:21
Physical Exam
-
GENERAL/NEURO: Awake, Alert, no distress
CHEST: Unlabored breathing on RA
ABDOMEN: Soft, Non-Tender, Non-Distended, incisions clean dry and intact, dressings changed.
Patient has a azul catheter: No
Patient has a central line: No
[2025-04-22 12:02] VITALS: BP 161/92
== END 2025-04-22 12:35 | disposition home or self-care (01) | DRG 331 ==
LOC: 2 SOUTH 09:51
PROVIDERS: ADMITTING PHYSICIAN Surgery
PROC: 0DBM0ZZ Excision of Descending Colon, Open Approach (ICD-10-PCS; 2025-04-18)
PROC: 0DNU0ZZ Release Omentum, Open Approach (ICD-10-PCS; 2025-04-18)
PROC: 0DN80ZZ Release Small Intestine, Open Approach (ICD-10-PCS; 2025-04-18)
PROC: 0TNB0ZZ Release Bladder, Open Approach (ICD-10-PCS; 2025-04-18)
DX: Z43.3 Encounter for attention to colostomy (principal); K66.0 Peritoneal adhesions (postprocedural) (postinfection); K62.89 Other specified diseases of anus and rectum; Z53.31 Laparoscopic surgical procedure converted to open procedure; Z88.0 Allergy status to penicillin; Z87.19 Personal history of other diseases of the digestive system
CPT/HCPCS: 88304; 80048; 85025; C1776